=== PATIENT | female | born 1980 | race Caucasian/White ===

== ENCOUNTER 2016-06-14 11:55 | Emergency (ER) | payer BC ==
[~2016-06-14] VITALS: Ht 160 cm; Wt 140.6 kg
[~2016-06-14 11:55] MED LIST: BUPR150T15 PO; BUPR150T8 PO; CIPR500T94 PO; CITA20TA9 PO; LEVO200T PO; OMEP40CA2 PO; TRAZ150T55 PO; mirena
--- NOTE | 2016-06-14 13:10 | ED.ADGEN ---
Past Medical History Past Medical History: Depression, Hypothyroid, Migraines, UTI, Other Additional Past Medical Histor: left kidney disease; abscess, acid reflux Past Surgical History: Other Additional Past Surgical Histo: l)ureter repair,interstim for pelvic floor tension,I&D([id number],lap band Alcohol Use: Rarely Drug Use: None Adult General Chief Complaint Chief Complaint: ABDOMINAL PAIN HPI HPI Patient is a 35 year old [woman, history of morbid obesity, depression, hypothyroidism, recurrent UTIs, who presents to the emergency department with complaint of abdominal pain 6 days. Patient states the pain is located in her lower pelvis, midline, does radiate to her back. Denies any nausea or vomiting, any fevers or chills, any weakness, numbness, tingling, swelling extremities, chest pain or shortness of breath, injuries. She states that she initially thought this was due to a urinary tract infection, was seen at an urgent care center on , and was told that her urine was clear that time. Patient states she's been taking muscle relaxers and pain medication without relief. Last use ibuprofen and cycle that the pain last night without relief. Patient states that she feels worse with motion and activity, and when lying on her side. Denies any frequency, urgency or dysuria, Review of Systems Review of Systems Constitutional: Denies fever or chills. [] Eyes: Denies change in visual acuity. [] HENT: Denies nasal congestion or sore throat. [] Respiratory: Denies cough or shortness of breath. [] Cardiovascular: Denies chest pain or edema. [] GI: Denies nausea, vomiting, bloody stools or diarrhea. Lower quadrant abdominal pain.. : Denies dysuria. [] Musculoskeletal: Denies back pain or joint pain. [] Integument: Denies rash. [] Neurologic: Denies headache, focal weakness or sensory changes. [] Endocrine: Denies polyuria or polydipsia. [] Lymphatic: Denies swollen glands. [] Psychiatric: Denies depression or anxiety. [] Current Medications Current Medications Current Medications Medications (Trade) Dose Ordered Sig/Linh Start Time Stop Time Status Last Admin Dose Admin Acetaminophen/ Hydrocodone Bitart (Lortab 5/325) 1 tab 1X ONCE 06/14/16 18:45 06/14/16 18:46 DC 06/14/16 18:43 1 TAB Acetaminophen/ Hydrocodone Bitart (Lortab 7.5/325) 1 tab 1X ONCE 06/14/16 13:15 06/14/16 13:30 DC 06/14/16 13:36 1 TAB Fentanyl Citrate (Fentanyl 2ml Vial) 25 mcg PRN Q15MIN PRN 06/14/16 16:15 06/15/16 16:14 06/14/16 16:37 25 MCG Iohexol (Omnipaque 300 Mg/ml) 75 ml 1X ONCE 06/14/16 17:15 06/14/16 17:16 DC 06/14/16 17:20 75 ML Metronidazole (Flagyl) 500 mg 1X ONCE 06/14/16 18:45 06/14/16 18:46 DC 06/14/16 18:49 500 MG Naproxen (Naprosyn) 500 mg 1X ONCE 06/14/16 13:15 06/14/16 13:20 DC 06/14/16 13:35 500 MG Ondansetron HCl (Zofran) 4 mg 1X ONCE 06/14/16 16:15 06/14/16 16:16 DC 06/14/16 16:35 4 MG Allergies Allergies Allergies Coded Allergies Type Severity Reaction Last Updated Verified azithromycin Allergy Severe rash/swelling 02/09/16 Yes sumatriptan Allergy Severe "throat swells" 02/09/16 Yes hydromorphone Allergy Intermediate itching/nausea 02/09/16 Yes latex Allergy Intermediate itching 02/09/16 Yes morphine Adverse Reaction Intermediate n/v 02/09/16 Yes Physical Exam Physical Exam Constitutional: Well developed, well nourished, no acute distress, non-toxic appearance. [] HENT: Normocephalic, atraumatic, bilateral external ears normal, oropharynx moist, no oral exudates, nose normal. [] Eyes: PERRLA, EOMI, conjunctiva normal, no discharge. [] Neck: Normal range of motion, no tenderness, supple, no stridor. [] Cardiovascular:Heart rate regular rhythm, no murmur [] Lungs & Thorax: Bilateral breath sounds clear to auscultation [] Abdomen: Bowel sounds normal, soft, mild tenderness palpation in the suprapubic pelvic region, patient morbidly obese, no rebound, rigidity, no guarding, no masses, no pulsatile masses. [] Skin: Warm, dry, no erythema, no rash. [] Back: No tenderness, no CVA tenderness. [] Extremities: No tenderness, no cyanosis, no clubbing, ROM intact, no edema. [] Neurologic: Alert and oriented X 3, normal motor function, normal sensory function, no focal deficits noted. [] Psychologic: Affect normal, judgement normal, mood normal. [] Pelvic examination: Patient with tenderness to palpation, of the cervix and left adnexa, no masses identified, patient with significant discomfort with specimens obtained, with small amount of white discharge noted in the vault. Current Patient Data Vital Signs Vital Signs Date Time Temp Pulse Resp B/P Pulse Ox O2 Delivery O2 Flow Rate FiO2 06/14/16 18:43 16 98 Room Air 06/14/16 15:42 94 153/73 06/14/16 12:30 98.3 98.3 Lab Values Laboratory Tests Test 06/14/16 11:42 06/14/16 12:50 06/14/16 16:20 POC Urine HCG, Qualitative Hcg negative (Negative) Urine Color Yellow Urine Clarity Clear Urine pH 6.5 Urine Specific [place] <=1.005 Urine Protein Negativemg/dL (NEG-TRACE) Urine Glucose (UA) Negativemg/dL (NEG) Urine Ketones (Stick) Negativemg/dL (NEG) Urine Blood Negative (NEG) Urine Nitrite Negative (NEG) Urine Bilirubin Negative (NEG) Urine Urobilinogen Dipstick 0.2mg/dL (0.2 mg/dL) Urine Leukocyte Esterase Small (NEG) Urine RBC 0/HPF (0-2) Urine WBC 1-4/HPF (0-4) Urine Squamous Epithelial Cells Occ/LPF Urine Bacteria Few/HPF (0-FEW) White Blood Count 10.8x10^3/uL (4.0-11.0) Red Blood Count 4.73x10^6/uL (3.50-5.40) Hemoglobin 13.2g/dL (12.0-15.5) Hematocrit 40.6% (36.0-47.0) Mean Corpuscular Volume 86fL (79-100) Mean Corpuscular Hemoglobin 28pg (25-35) Mean Corpuscular Hemoglobin Concent 33g/dL (31-37) Red Cell Distribution Width 13.7% (11.5-14.5) Platelet Count 259x10^3/uL (140-400) Neutrophils (%) (Auto) 67% (31-73) Lymphocytes (%) (Auto) 29% (24-48) Monocytes (%) (Auto) 4% (0-9) Eosinophils (%) (Auto) 1% (0-3) Basophils (%) (Auto) 1% (0-3) Neutrophils # (Auto) 7.2x10^3uL (1.8-7.7) Lymphocytes # (Auto) 3.1x10^3/uL (1.0-4.8) Monocytes # (Auto) 0.4x10^3/uL (0.0-1.1) Eosinophils # (Auto) 0.1x10^3/uL (0.0-0.7) Basophils # (Auto) 0.1x10^3/uL (0.0-0.2) Sodium Level 141mmol/L (136-145) Potassium Level 4.2mmol/L (3.5-5.1) Chloride Level 105mmol/L (98-107) Carbon Dioxide Level 25mmol/L (21-32) Anion Gap 11 (6-14) Blood Urea Nitrogen 18mg/dL (7-20) Creatinine 1.0mg/dL (0.6-1.0) Estimated GFR (Cockcroft-Gault) 63.5 BUN/Creatinine Ratio 18 (6-20) Glucose Level 118mg/dL (70-99) H Calcium Level 9.1mg/dL (8.5-10.1) Total Bilirubin 0.3mg/dL (0.2-1.0) Aspartate Amino Transferase (AST) 14U/L (15-37) L Alanine Aminotransferase (ALT) 21U/L (14-59) Alkaline Phosphatase 74U/L (46-116) Total Protein 7.9g/dL (6.4-8.2) Albumin 4.1g/dL (3.4-5.0) Albumin/Globulin Ratio 1.1 (1.0-1.7) Laboratory Tests 06/14/16 16:20 Laboratory Tests 06/14/16 16:20 Microbiology 06/14/16 Wet Prep - Final, Complete Microbiology 06/14/16 Wet Prep - Final, Complete EKG EKG [] Radiology/Procedures Radiology/Procedures [] [facility] [address] [place] [address] IMAGING REPORT Signed PATIENT: LAURA MARTIN ACCOUNT: [id number] : 1980 LOCATION: ER AGE: 35 SEX: F EXAM STATUS: REG ER ORD. PHYSICIAN: RAFAEL VALDEZ DO REASON: TTP L adnexa/cervix PROCEDURE: PELVIS W/TV Indication: Left adnexal tenderness to touch. Technique: Transabdominal imaging was initially performed. Transvaginal imaging also was performed to better evaluate both the uterus and the adnexa. Findings: Uterus measures 7.0 x 3.2 x 4.7 cm. Endometrial stripe measures 3 mm. There is no uterine lesion. Right ovary is visualized with color flow and waveform documented. Left ovary was not visualized transabdominally or transvaginally. There is no free pelvic fluid. Scanning in the region of the cervix demonstrated a hypoechoic focus, slightly heterogeneous. Evaluation is limited in this region. Potential polyp is noted as well. Impression: 1. Ill-defined hypoechoic focus within the cervix, nonspecific. Please correlate with exam findings. If further workup is warranted post clinical exam, consider nonemergent MRI. 2. Potential cervical polyp also noted. 3. Normal appearance of the uterus and right ovary. Nonvisualized left ovary. DICTATED and SIGNED BY: ERIK MARTINEZ MD DATE: 06/14/16 3402 CC: ROSA QURESHI MD; RAFAEL VALDEZ DO ~ Impressions: [facility] [address] [place] [address] IMAGING REPORT Signed PATIENT: LAURA MARTIN ACCOUNT: [id number] : 1980 LOCATION: ER AGE: 35 SEX: F EXAM STATUS: REG ER ORD. PHYSICIAN: RAFAEL VALDEZ DO REASON: Abd pain PROCEDURE: ABD PELV W/ IV CONTRAST ONLY PROCEDURE CT abdomen pelvis with intravenous contrast. HISTORY Abdominal pain. TECHNIQUE After administration of intravenous contrast only, 75 mL Omnipaque 300, CT of the abdomen and pelvis was formed. Exposure: One or more of the following individualized dose reduction techniques were utilized for this examination: 1. Automated exposure control. 2. Adjustment of the mA and/or kV according to patient size. 3. Use of iterative reconstruction technique. COMPARISON CT abdomen pelvis March 30, 2015. FINDINGS Evaluation of enteric structures may be limited by lack of oral contrast. Images of lower chest demonstrate 5 millimeter soft tissue pulmonary nodule in right lower lobe; given patient's age, this is probably clinically insignificant. A lap band device is seen. Liver, spleen, pancreas, gallbladder, and bilateral adrenal glands are unremarkable. Bilateral kidneys enhance symmetrically. Left kidney demonstrates moderate parenchymal thinning and scarring. No bowel obstruction or inflammation is seen. Appendix is without evidence of inflammation. Urinary bladder is unremarkable. Uterus and adnexa have unremarkable CT appearance. Sacral stimulator is seen. IMPRESSION No acute abnormality identified in the abdomen or pelvis. Electronically signed by: Flavio Romano MD (Jun 14, 2016 18:18:16) DICTATED and SIGNED BY: FLAVIO ROMANO MD DATE: 06/14/161817 CC: ROSA QURESHI MD; RAFAEL VALDEZ DO ~ Course & Med Decision Making Course & Med Decision Making Pertinent Labs and Imaging studies reviewed. (See chart for details) Patient well-appearing, pelvic examination reveals tenderness in the cervical region, although not consistent with chandelier sign. Wet prep revealed bacterial vaginosis, and a few WBCs. Ultrasound obtained due to patient's examination and complaint of pain, reveals hypoechoic density in the cervix, also possible polyp. Does not fully visualize the left ovary, right ovary is normal. On reevaluation patient is Plain pain, she is receive pain medication in the emergency department, states the pain remains in the same location although it is improved. Findings as above were discussed with Dr. Gastelum [employer] , who recommends the patient receive a CT of abdomen and pelvis to rule out a possible occult appendicitis or other concerning finding. Patient received laboratory studies revealed no evidence of acute abnormalities, and CT of abdomen and pelvis after discussion with patient regarding risk versus benefit of radiation, which did not reveal any evidence of acutely concerning findings either. Reevaluation patient is to experience some discomfort, but is tolerating by mouth in the ED without issue. 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 Patient was given copies of both her ultrasound and CT, patient voiced understanding and agreement with this plan, discharged home with pain medication, return precautions and medication instructions, in stable condition with plan as above. Dragon Disclaimer Dragon Disclaimer This electronic medical record was generated, in whole or in part, using a voice recognition dictation system. Departure Impression: Primary Impression: Pelvic pain Disposition: 01 HOME, SELF-CARE Condition: IMPROVED Scripts Metronidazole 500 Mg Tablet1 Tab PO BID #14 TAB Prov:RAFAEL VALDEZ DO 06/14/16 Hydrocodone Bit/Acetaminophen (Hydrocodone-Apap 5-325 )1 Each Tablet1 Tab PO PRN Q6HRS PRN PAIN #10 TAB Ref 0 Prov:RAFAEL VALDEZ DO 06/14/16 Naproxen 250 Mg [id number] Mg PO BID PRN PAIN #10 Prov:RAFAEL VALDEZ DO 06/14/16 RAFAEL VALDEZ DO Jun 14, 2016 13:10
[2016-06-14] MEDS ORDERED: HYDROCODONE/APAP 7.5/325MG TABLET. PO ONE (13:15)
[2016-06-14] MEDS ORDERED: NAPROXEN 500 MG TABLET PO ONE (13:15)
[2016-06-14 13:42] LABS: BILIRUBIN,URINE NEGATIVE (NEG); GLUCOSE,URINE NEGATIVE (NEG); NITRITE,URINE NEGATIVE (NEG); PH,URINE 6.5; PROTEIN,URINE NEGATIVE (NEG-TRACE); UROBILINOGEN,URINE 0.2 mg/dL (0.2 mg/dL)
[2016-06-14 13:56] LABS: BACTERIA,URINE FEW /HPF (0-FEW); RBC,URINE 0 /HPF (0-2); SQUAMOUS EPITHELIAL CELL,UR OCC /LPF
--- NOTE | 2016-06-14 14:41 | RAD ---
Indication: Left adnexal tenderness to touch. Technique: Transabdominal imaging was initially performed. Transvaginal imaging also was performed to better evaluate both the uterus and the adnexa. Findings: Uterus measures 7.0 x 3.2 x 4.7 cm. Endometrial stripe measures 3 mm. There is no uterine lesion. Right ovary is visualized with color flow and waveform documented. Left ovary was not visualized transabdominally or transvaginally. There is no free pelvic fluid. Scanning in the region of the cervix demonstrated a hypoechoic focus, slightly heterogeneous. Evaluation is limited in this region. Potential polyp is noted as well. Impression: 1. Ill-defined hypoechoic focus within the cervix, nonspecific. Please correlate with exam findings. If further workup is warranted post clinical exam, consider nonemergent MRI. 2. Potential cervical polyp also noted. 3. Normal appearance of the uterus and right ovary. Nonvisualized left ovary.
[2016-06-14] MEDS ORDERED: ONDANSETRON PF 4 MG/2 ML VIAL. IV ONE (16:15)
[2016-06-14] MEDS ORDERED: FENTANYL PF 100 MCG/2 ML VIAL. IV PRN (16:15)
[2016-06-14 16:31] LABS: BASO # 0.1 x10^3/uL (0.0-0.2); BASO % 1 % (0-3); EOS % 1 % (0-3); HEMATOCRIT 40.6 % (36.0-47.0); HEMOGLOBIN 13.2 g/dL (12.0-15.5); LYMPH # 3.1 x10^3/uL (1.0-4.8); LYMPH % 29 % (24-48); MEAN CORPUSCULAR HEMOGLOBIN 28 pg (25-35); MEAN CORPUSCULAR HGB CONC 33 g/dL (31-37); MEAN CORPUSCULAR VOLUME 86 fL (79-100); MONO % 4 % (0-9); NEUT % 67 % (31-73); PLATELET COUNT 259 x10^3/uL (140-400); RED BLOOD COUNT 4.73 x10^6/uL (3.50-5.40); RED CELL DISTRIBUTION WIDTH 13.7 % (11.5-14.5); WHITE BLOOD COUNT 10.8 x10^3/uL (4.0-11.0)
[2016-06-14 16:48] LABS: CALCIUM 9.1 mg/dL (8.5-10.1); GFR 63.5; POTASSIUM 4.2 mmol/L (3.5-5.1)
[2016-06-14 16:54] LABS: ALBUMIN 4.1 g/dL (3.4-5.0); ALBUMIN/GLOBULIN RATIO 1.1 (1.0-1.7); TOTAL BILIRUBIN 0.3 mg/dL (0.2-1.0); TOTAL PROTEIN 7.9 g/dL (6.4-8.2)
[2016-06-14] MEDS ORDERED: IOHEXOL 300 MG/ML 75 ML VIAL IV ONE (17:15)
--- NOTE | 2016-06-14 18:19 | RAD ---
PROCEDURE CT abdomen pelvis with intravenous contrast. HISTORY Abdominal pain. TECHNIQUE After administration of intravenous contrast only, 75 mL Omnipaque 300, CT of the abdomen and pelvis was formed. Exposure: One or more of the following individualized dose reduction techniques were utilized for this examination: 1. Automated exposure control. 2. Adjustment of the mA and/or kV according to patient size. 3. Use of iterative reconstruction technique. COMPARISON CT abdomen pelvis March 30, 2015. FINDINGS Evaluation of enteric structures may be limited by lack of oral contrast. Images of lower chest demonstrate 5 millimeter soft tissue pulmonary nodule in right lower lobe; given patient's age, this is probably clinically insignificant. A lap band device is seen. Liver, spleen, pancreas, gallbladder, and bilateral adrenal glands are unremarkable. Bilateral kidneys enhance symmetrically. Left kidney demonstrates moderate parenchymal thinning and scarring. No bowel obstruction or inflammation is seen. Appendix is without evidence of inflammation. Urinary bladder is unremarkable. Uterus and adnexa have unremarkable CT appearance. Sacral stimulator is seen. IMPRESSION No acute abnormality identified in the abdomen or pelvis. Electronically signed by: Flavio Gee MD (Jun 14, 2016 18:18:16)
[2016-06-14] MEDS ORDERED: METRONIDAZOLE 500 MG TABLET. PO ONE (18:45)
[2016-06-14] MEDS ORDERED: HYDROCODONE/APAP 5/325MG TABLET. PO ONE (18:45)
[2016-06-14] MEDS ORDERED: HYDR-2666 PO (18:46)
[2016-06-14] MEDS ORDERED: NAPR250T2 PO (18:46)
[2016-06-14] MEDS ORDERED: METR500T4 PO (18:46)
[2016-06-14 18:48] VITALS: BP 116/78
== END 2016-06-14 18:50 | disposition home or self-care (01) ==
LOC: ER 11:55
DX: R10.2 Pelvic and perineal pain (principal); E66.01 Morbid (severe) obesity due to excess calories; E03.9 Hypothyroidism, unspecified; K21.9 Gastro-esophageal reflux disease without esophagitis; F32.9 Major depressive disorder, single episode, unspecified; G43.909 Migraine, unspecified, not intractable, without status migrainosus; Z68.43 Body mass index [BMI] 50.0-59.9, adult; Z88.5 Allergy status to narcotic agent; Z88.8 Allergy status to other drugs, medicaments and biological substances; Z88.1 Allergy status to other antibiotic agents; Z91.040 Latex allergy status; Z87.440 Personal history of urinary (tract) infections
CPT/HCPCS: 36415; 74177; 76830; 76856; 80053; 81001; 81025; 85027; 87491; 87591; 96374; 96375; 99285; J2405; J3010; Q0111; Q9967

== ENCOUNTER 2016-09-28 00:53 | Emergency (ER) | payer BC ==
[~2016-09-28] VITALS: Ht 160 cm; Wt 140.6 kg
[~2016-09-28 00:53] MED LIST changes: +HYDR-2758 PO; +METR500T8 PO; +NAPR250T2 PO; +TRAZ150T49 PO; -TRAZ150T55 PO
[2016-09-28 01:13] VITALS: BP 116/78
[2016-09-28] MEDS: fentaNYL PF VIAL 100 MCG/2 ML VIAL IV PRN ×3 (02:16→04:05)
[2016-09-28 02:20] LABS: BASO % 0 % (0-3); EOS % 2 % (0-3); HEMATOCRIT 39.1 % (36.0-47.0); LYMPH # 3.8 x10^3/uL (1.0-4.8); LYMPH % 40 % (24-48); MEAN CORPUSCULAR HEMOGLOBIN 29 pg (25-35); MEAN CORPUSCULAR HGB CONC 33 g/dL (31-37); MEAN CORPUSCULAR VOLUME 87 fL (79-100); MONO % 6 % (0-9); NEUT % 52 % (31-73); PLATELET COUNT 236 x10^3/uL (140-400); RED BLOOD COUNT 4.47 x10^6/uL (3.50-5.40); RED CELL DISTRIBUTION WIDTH 13.6 % (11.5-14.5); WHITE BLOOD COUNT 9.4 x10^3/uL (4.0-11.0)
[2016-09-28 02:26] LABS: BILIRUBIN,URINE NEGATIVE (NEG); GLUCOSE,URINE NEGATIVE (NEG); NITRITE,URINE POSITIVE (NEG); PROTEIN,URINE NEGATIVE (NEG-TRACE); UROBILINOGEN,URINE 0.2 mg/dL (0.2 mg/dL)
[2016-09-28 02:34] LABS: CALCIUM 9.5 mg/dL (8.5-10.1); GFR 63.5; POTASSIUM 3.8 mmol/L (3.5-5.1)
[2016-09-28 02:36] LABS: BACTERIA,URINE FEW /HPF (0-FEW); RBC,URINE OCC /HPF (0-2); SQUAMOUS EPITHELIAL CELL,UR FEW /LPF; WBC,URINE OCC /HPF (0-4)
[2016-09-28 02:39] LABS: ALBUMIN 3.9 g/dL (3.4-5.0); TOTAL BILIRUBIN 0.2 mg/dL (0.2-1.0); TOTAL PROTEIN 7.7 g/dL (6.4-8.2)
[2016-09-28] MEDS ORDERED: cefTRIAXone IM 250 MG VIAL IM ONE (03:15)
[2016-09-28] MEDS ORDERED: DOXYCYCLINE HYCLATE 100 MG TABLET PO ONE (03:15)
[2016-09-28] MEDS ORDERED: MORP15TA PO (03:19)
[2016-09-28] MEDS ORDERED: DOXY100C2 PO (03:19)
[2016-09-28] MEDS ORDERED: ONDA4TAB10 SL (03:19)
--- NOTE | 2016-09-28 03:19 | PHYS DOC ---
Past Medical History Past Medical History: Depression, Hypothyroid, Migraines, UTI, Other Additional Past Medical Histor: left kidney disease; abscess, acid reflux Past Surgical History: Other Additional Past Surgical Histo: l)ureter repair,interstim for pelvic floor tension,I&D([id number],lap band Alcohol Use: Rarely Drug Use: None Adult General Chief Complaint Chief Complaint: ABDOMINAL PAIN HPI HPI 35-year-old female presenting to the emergency department today with lower abdominal suprapubic pain radiates to the back. It is mild to moderate, intermittent and feels like pressure. She reports dysuria without polyuria. She denies hematuria. She does have mild constipation but denies any blood in her stool. She denies recent STD exposure. She has had mild increase change in her vaginal fluid. Review of systems is negative for chest pain shortness of breath fevers chills. All other review of systems is negative unless otherwise noted in history of present illness. ED course: 35-year-old female presenting with suprapubic abdominal pain. Afebrile with a normal heart rate in the emergency department. Pertinent physical exam findings showed a soft nontender abdomen. Nontender McBurney's point. Negative Nunez sign. Vaginal exam performed in the presence of female nurse showed white discharge. No evidence of cervicitis. No cervical motion tenderness present. No masses palpated in the adnexa. Rocephin and doxycycline given empirically initially. Wet prep sent. The patient was then discharged home in stable condition to follow up with their primary care physician over the next 2-3 days. They were to return if their symptoms worsened or if they were concerned for any reason. [id number] discharge instructions and return precautions were given. Patient's questions were answered to their satisfaction. Patient is comfortable plan. Review of Systems Review of Systems SEE ABOVE. Current Medications Current Medications Current Medications Medications (Trade) Dose Ordered Sig/Linh Start Time Stop Time Status Last Admin Dose Admin Ceftriaxone Sodium (Rocephin Im) 250 mg 1X ONCE 09/28/16 03:15 09/28/16 03:16 DC 09/28/16 03:59 250 MG Doxycycline Hyclate (Vibra-Tab) 100 mg 1X ONCE 09/28/16 03:15 09/28/16 03:16 DC 09/28/16 03:59 100 MG Fentanyl Citrate (Fentanyl 2ml Vial) 25 mcg PRN Q30MIN PRN 09/28/16 02:15 09/28/16 04:05 DC 09/28/16 04:05 25 MCG Allergies Allergies Allergies Coded Allergies Type Severity Reaction Last Updated Verified azithromycin Allergy Severe rash/swelling 02/09/16 Yes sumatriptan Allergy Severe "throat swells" 02/09/16 Yes hydromorphone Allergy Intermediate itching/nausea 02/09/16 Yes latex Allergy Intermediate itching 02/09/16 Yes morphine Adverse Reaction Intermediate n/v 02/09/16 Yes Physical Exam Physical Exam Constitutional: Well developed, well nourished, no acute distress, non-toxic appearance. [] HENT: Normocephalic, atraumatic, bilateral external ears normal, oropharynx moist, no oral exudates, nose normal. [] Eyes: PERRLA, EOMI, conjunctiva normal, no discharge. [] Neck: Normal range of motion, no tenderness, supple, no stridor. [] Cardiovascular:Heart rate regular rhythm, no murmur [] Lungs & Thorax: Bilateral breath sounds clear to auscultation [] Abdomen: See above Skin: Warm, dry, no erythema, no rash. [] Back: No tenderness, no CVA tenderness. [] Extremities: No tenderness, no cyanosis, no clubbing, ROM intact, no edema. [] Neurologic: Alert and oriented X 3, normal motor function, normal sensory function, no focal deficits noted. [] Psychologic: Affect normal, judgement normal, mood normal. [] Current Patient Data Vital Signs Vital Signs Date Time Temp Pulse Resp B/P (MAP) Pulse Ox O2 Delivery O2 Flow Rate FiO2 09/28/16 04:05 18 Room Air 09/28/16 02:55 98 09/28/16 01:13 97.9 71 116/78 (91) 97.9 Lab Values Laboratory Tests Test 09/28/16 00:26 09/28/16 01:15 09/28/16 01:26 POC Urine HCG, Qualitative Hcg negative (Negative) Urine Collection Type Unknown Urine Color [place] Urine Clarity Clear Urine pH 6.0 Urine Specific [place] <=1.005 Urine Protein Negative mg/dL (NEG-TRACE) Urine Glucose (UA) Negative mg/dL (NEG) Urine Ketones (Stick) Negative mg/dL (NEG) Urine Blood Negative (NEG) Urine Nitrite Positive (NEG) Urine Bilirubin Negative (NEG) Urine Urobilinogen Dipstick 0.2 mg/dL (0.2 mg/dL) Urine Leukocyte Esterase Negative (NEG) Urine RBC Occ /HPF (0-2) Urine WBC Occ /HPF (0-4) Urine Squamous Epithelial Cells Few /LPF Urine Bacteria Few /HPF (0-FEW) White Blood Count 9.4 x10^3/uL (4.0-11.0) Red Blood Count 4.47 x10^6/uL (3.50-5.40) Hemoglobin 13.0 g/dL (12.0-15.5) Hematocrit 39.1 % (36.0-47.0) Mean Corpuscular Volume 87 fL (79-100) Mean Corpuscular Hemoglobin 29 pg (25-35) Mean Corpuscular Hemoglobin Concent 33 g/dL (31-37) Red Cell Distribution Width 13.6 % (11.5-14.5) Platelet Count 236 x10^3/uL (140-400) Neutrophils (%) (Auto) 52 % (31-73) Lymphocytes (%) (Auto) 40 % (24-48) Monocytes (%) (Auto) 6 % (0-9) Eosinophils (%) (Auto) 2 % (0-3) Basophils (%) (Auto) 0 % (0-3) Neutrophils # (Auto) 4.9 x10^3uL (1.8-7.7) Lymphocytes # (Auto) 3.8 x10^3/uL (1.0-4.8) Monocytes # (Auto) 0.5 x10^3/uL (0.0-1.1) Eosinophils # (Auto) 0.2 x10^3/uL (0.0-0.7) Basophils # (Auto) 0.0 x10^3/uL (0.0-0.2) Sodium Level 140 mmol/L (136-145) Potassium Level 3.8 mmol/L (3.5-5.1) Chloride Level 104 mmol/L (98-107) Carbon Dioxide Level 27 mmol/L (21-32) Anion Gap 9 (6-14) Blood Urea Nitrogen 16 mg/dL (7-20) Creatinine 1.0 mg/dL (0.6-1.0) Estimated GFR (Cockcroft-Gault) 63.5 BUN/Creatinine Ratio 16 (6-20) Glucose Level 82 mg/dL (70-99) Calcium Level 9.5 mg/dL (8.5-10.1) Total Bilirubin 0.2 mg/dL (0.2-1.0) Aspartate Amino Transferase (AST) 13 U/L (15-37) L Alanine Aminotransferase (ALT) 19 U/L (14-59) Alkaline Phosphatase 70 U/L (46-116) Total Protein 7.7 g/dL (6.4-8.2) Albumin 3.9 g/dL (3.4-5.0) Albumin/Globulin Ratio 1.0 (1.0-1.7) Lipase 299 U/L (73-393) Laboratory Tests 09/28/16 01:26 Laboratory Tests 09/28/16 01:26 Microbiology 09/28/16 Wet Prep - Final, Complete EKG EKG [] Radiology/Procedures Radiology/Procedures [] Course & Med Decision Making Course & Med Decision Making Pertinent Labs and Imaging studies reviewed. (See chart for details) [] Dragon Disclaimer Dragon Disclaimer This electronic medical record was generated, in whole or in part, using a voice recognition dictation system. Departure Departure Impression: Primary Impression: Suprapubic abdominal pain Additional Impression: UTI (lower urinary tract infection) Disposition: HOME, SELF-CARE Condition: STABLE Referrals: ROSA QURESHI MD (PCP) Patient Instructions: Abdominal Pain, Women Additional Instructions: Thank you for allowing us to participate in your care today. Followup with your primary care physician in 3 days if your symptoms do not improve. Call your Primary Doctor tomorrow and inform them of your visit today. If you do not have a primary care provider you can ask for a list of our primary care providers. Return to the emergency department you have any new or concerning findings. This should be evaluated by the primary care physician and any necessary consulting services for continued management within a few days after discharge. Return to emergency room if you have any new or concerning symptoms including but not limited to fever, chills, nausea, vomiting, intractable pain, any new rashes, chest pain, shortness of air, uncontrolled bleeding, difficulty breathing, and/or vision loss. You may have been prescribed medication that can change in your level of thinking and ability to operate machinery. These medications include hydrocodone and Ativan. Also, Benadryl has been known to do this as well. Be sure to check with your pharmacist and ask if the medications you've prescribed can affect your level of consciousness. I recommend not operating heavy machinery or driving while on medication such as these. Scripts Nitrofurantoin Monohyd/M-Cryst (MACROBID 100 MG CAPSULE) 100 Mg Capsule 1 CAP PO BID, #10 CAP Prov: BALWINDER GUPTA MD 09/28/16 Morphine Sulfate (MORPHINE SULFATE) 15 Mg Tablet 1 TAB PO PRN Q6-8HRS Y for SEVERE PAIN, #8 TAB Prov: BALWINDER GUPTA MD 09/28/16 Ondansetron (ZOFRAN ODT) 4 Mg Tab.rapdis 1 TAB SL PRN Q8HRS Y for NAUSEA, #6 TAB Prov: BALWINDER GUPTA MD 09/28/16 Doxycycline Hyclate (DOXYCYCLINE HYCLATE) 100 Mg Capsule 1 CAP PO BID, #14 CAP Prov: BALWINDER GUPTA MD 09/28/16 Problem Qualifiers BALWINDER GUPTA MD Sep 28, 2016 03:19
--- NOTE | 2016-09-28 04:12 | RAD ---
EXAM: PELVIS W/TV HISTORY: PELVIC PAIN, LARGE BODY HABITUS PT ON DEPO UNSURE LAST PERIOD, LIMITED EXAM COMPARISON: June 14, 2016 TECHNIQUE: Transverse and longitudinal sonography of the pelvis is performed utilizing transabdominal and transvaginal transducers. The exam is technically limited given patient body habitus. FINDINGS: The uterus nor ovaries are visualized transabdominally. Transabdominal imaging demonstrates an anteflexed uterus measuring 7.6 x 3.1 x 4.1 cm. Endometrial thickness measures 5 mm. The right ovary is visualized measuring 2.7 x 2.2 x 2.2 cm, with internal blood flow documented. A simple appearing 2.0 cm cyst is seen within the right ovary. The left ovary is not visualized. No adnexal mass is seen. No free fluid is seen within the provided images. A hypoechoic region is redemonstrated within the region of the cervix, unchanged from the previous exam. IMPRESSION: A simple appearing right ovarian cyst is present measuring 2.0 cm. Blood flow documented to the right ovary. Left ovary not visualized. Electronically signed by: Maegan Perkins MD (09/28/2016 4:09 AM)
[2016-09-28] MEDS ORDERED: NITR100C62 PO (04:20)
== END 2016-09-28 04:45 | disposition home or self-care (01) ==
LOC: ER 00:53
DX: N39.0 Urinary tract infection, site not specified (principal); K59.00 Constipation, unspecified; E03.9 Hypothyroidism, unspecified; K21.9 Gastro-esophageal reflux disease without esophagitis; G43.909 Migraine, unspecified, not intractable, without status migrainosus; Z87.448 Personal history of other diseases of urinary system; Z98.890 Other specified postprocedural states; Z88.1 Allergy status to other antibiotic agents; Z88.5 Allergy status to narcotic agent; Z91.040 Latex allergy status
CPT/HCPCS: 36415; 76830; 76856; 80053; 81001; 81025; 83690; 85027; 87086; 87491; 87591; 96372; 96374; 96376; 99285; J0696; J3010; Q0111

== ENCOUNTER 2016-10-24 01:43 | Emergency (ER) | payer BC ==
[~2016-10-24] VITALS: Ht 160 cm; Wt 142.9 kg
[~2016-10-24 01:43] MED LIST changes: +DOXY100C2 PO; +MORP15TA PO; +NITR100C62 PO; +ONDA4TAB10 SL
[2016-10-24 02:30] VITALS: BP 116/78
--- NOTE | 2016-10-24 02:56 | PHYS DOC ---
Past Medical History Past Medical History: Depression, Hypothyroid, Migraines, UTI, Other Additional Past Medical Histor: left kidney disease; abscess, acid reflux; interstitial cystitis Past Surgical History: Other Additional Past Surgical Histo: l)ureter repair,interstim for pelvic floor tension,I&D([id number],lap band Alcohol Use: Rarely Drug Use: None Adult General Chief Complaint Chief Complaint: PELVIC PAIN HPI HPI Patient is a 35 year old female who presents with pelvic pain. He has apparently chronic pelvic pain has been evaluated a urologist. She was here September 28 a pelvic ultrasound done. Laboratory data was unremarkable then. She states that it hurts in the middle of her pelvis. No radiation of pain. No fever. No nausea or vomiting. No diarrhea Review of Systems Review of Systems Constitutional: Denies fever or chills Eyes: Denies change in visual acuity, redness, or eye pain HENT: Denies nasal congestion or sore throat Respiratory: Denies cough or shortness of breath Cardiovascular: No chest pain GI: Denies abdominal pain, nausea, vomiting, bloody stools or diarrhea : chronic dysuria and hematuria Musculoskeletal: Denies back pain or joint pain Integument: Denies rash or skin lesions Neurologic: Denies headache, focal weakness or sensory changes Current Medications Current Medications Current Medications Medications (Trade) Dose Ordered Sig/Linh Start Time Stop Time Status Last Admin Dose Admin Fentanyl Citrate (Fentanyl 2ml Vial) 50 mcg PRN Q15MIN PRN 10/24/16 03:00 10/25/16 02:59 10/24/16 05:28 50 MCG Info (Do NOT chart on this entry -- for MONITORING) 1 each PRN DAILY PRN 10/24/16 04:15 10/26/16 04:14 Iohexol (Omnipaque 300 Mg/ml) 60 ml 1X ONCE 10/24/16 04:30 10/24/16 04:31 DC 10/24/16 04:46 60 ML Ondansetron HCl (Zofran) 4 mg 1X ONCE 10/24/16 03:15 10/24/16 03:16 DC 10/24/16 03:45 4 MG Sodium Chloride 1,000 ml @ 1,000 mls/hr Q1H 10/24/16 03:00 10/24/16 03:59 DC 10/24/16 03:45 1,000 MLS/HR Allergies Allergies Allergies Coded Allergies Type Severity Reaction Last Updated Verified azithromycin Allergy Severe rash/swelling 02/09/16 Yes sumatriptan Allergy Severe "throat swells" 02/09/16 Yes hydromorphone Allergy Intermediate itching/nausea 02/09/16 Yes latex Allergy Intermediate itching 02/09/16 Yes morphine Adverse Reaction Intermediate n/v 02/09/16 Yes Physical Exam Physical Exam Constitutional: Well developed, well nourished, no acute distress, non-toxic appearance holding her groin area. HENT: Normocephalic, atraumatic, bilateral external ears normal, oropharynx moist, no oral exudates, nose normal. Eyes: PERRLA, EOMI, conjunctiva normal, no discharge. Neck: Normal range of motion, no tenderness, supple, no stridor. Cardiovascular:Heart rate regular rhythm, no murmur Lungs & Thorax: Bilateral breath sounds clear to auscultation Abdomen: Bowel sounds normal, soft, no tenderness, no masses, no pulsatile masses. No evidence of acute surgical abdomen. Skin: Warm, dry, no erythema, no rash. Back: No tenderness, no CVA tenderness. Extremities: No tenderness, no cyanosis, no clubbing, ROM intact, no edema. Neurologic: Alert and oriented X 3, normal motor function, normal sensory function, no focal deficits noted. Psychologic: Affect normal, judgement normal, mood normal. Current Patient Data Vital Signs Vital Signs Date Time Temp Pulse Resp B/P (MAP) Pulse Ox O2 Delivery O2 Flow Rate FiO2 10/24/16 02:30 98.8 80 16 116/78 (91) 98 Room Air 98.8 Lab Values Laboratory Tests Test 10/24/16 02:45 10/24/16 03:56 White Blood Count 13.1 x10^3/uL (4.0-11.0) H Red Blood Count 4.64 x10^6/uL (3.50-5.40) Hemoglobin 13.4 g/dL (12.0-15.5) Hematocrit 41.3 % (36.0-47.0) Mean Corpuscular Volume 89 fL (79-100) Mean Corpuscular Hemoglobin 29 pg (25-35) Mean Corpuscular Hemoglobin Concent 32 g/dL (31-37) Red Cell Distribution Width 14.3 % (11.5-14.5) Platelet Count 268 x10^3/uL (140-400) Neutrophils (%) (Auto) 74 % (31-73) H Lymphocytes (%) (Auto) 21 % (24-48) L Monocytes (%) (Auto) 4 % (0-9) Eosinophils (%) (Auto) 1 % (0-3) Basophils (%) (Auto) 0 % (0-3) Neutrophils # (Auto) 9.7 x10^3uL (1.8-7.7) H Lymphocytes # (Auto) 2.7 x10^3/uL (1.0-4.8) Monocytes # (Auto) 0.5 x10^3/uL (0.0-1.1) Eosinophils # (Auto) 0.1 x10^3/uL (0.0-0.7) Basophils # (Auto) 0.1 x10^3/uL (0.0-0.2) Urine Collection Type Unknown Urine Color [place] Urine Clarity Cloudy Urine pH 5.0 Urine Specific [place] 1.015 Urine Protein Negative mg/dL (NEG-TRACE) Urine Glucose (UA) Negative mg/dL (NEG) Urine Ketones (Stick) Trace mg/dL (NEG) Urine Blood Negative (NEG) Urine Nitrite Positive (NEG) Urine Bilirubin Small (NEG) Urine Urobilinogen Dipstick 1.0 mg/dL (0.2 mg/dL) Urine Leukocyte Esterase Small (NEG) Urine RBC Occ /HPF (0-2) Urine WBC 1-4 /HPF (0-4) Urine Squamous Epithelial Cells Mod /LPF Urine Bacteria Few /HPF (0-FEW) Urine Hyaline Casts Few /HPF Sodium Level 140 mmol/L (136-145) Potassium Level 3.4 mmol/L (3.5-5.1) L Chloride Level 104 mmol/L (98-107) Carbon Dioxide Level 24 mmol/L (21-32) Anion Gap 12 (6-14) Blood Urea Nitrogen 19 mg/dL (7-20) Creatinine 1.1 mg/dL (0.6-1.0) H Estimated GFR (Cockcroft-Gault) 56.9 BUN/Creatinine Ratio 17 (6-20) Glucose Level 124 mg/dL (70-99) H Calcium Level 8.9 mg/dL (8.5-10.1) Total Bilirubin 0.5 mg/dL (0.2-1.0) Aspartate Amino Transferase (AST) 20 U/L (15-37) Alanine Aminotransferase (ALT) 26 U/L (14-59) Alkaline Phosphatase 80 U/L (46-116) Total Protein 7.6 g/dL (6.4-8.2) Albumin 3.9 g/dL (3.4-5.0) Albumin/Globulin Ratio 1.1 (1.0-1.7) Lipase 274 U/L (73-393) Urine Test Negative (NEG) Laboratory Tests 10/24/16 02:45 Laboratory Tests 10/24/16 02:45 Radiology/Procedures Radiology/Procedures IMAGING REPORT Signed PATIENT: LAURA MARTIN ACCOUNT: [id number] : 1980 LOCATION: ER AGE: 35 SEX: F EXAM STATUS: REG ER ORD. PHYSICIAN: ANA GRAY MD REASON: pelvic pain PROCEDURE: CT ABD PELV W/ IV CONTRST ONLY CT abdomen and pelvis with contrast: Reason for examination: Severe pelvic pain tonight. Helical images were obtained through the abdomen and pelvis with intravenous administration of 60 cc Omnipaque 300. Reconstruction was performed in sagittal and coronal planes. Exposure: One or more of the following individualized dose reduction techniques were utilized for this examination: 1. Automated exposure control 2. Adjustment of the mA and/or kV according to patient size 3. Use of iterative reconstruction technique. There is some linear density consistent with atelectasis in the right middle lobe and lingular segment of the left lung. The heart size is normal with no pericardial effusion. No abnormality seen at the liver, gallbladder, spleen, pancreas or adrenal glands. The abdominal aorta and inferior vena cava show no acute abnormalities. The right kidney shows no mass, renal calculus, hydronephrosis or evidence of obstructive uropathy. The left kidney shows some parenchymal scarring and suggestion of some moderate hydronephrosis but no evidence of obstructive uropathy. There is a large amount of fecal material within the colon. There is no evidence of bowel obstruction. There is no evidence of diverticulosis or diverticulitis. No abnormalities seen at the appendix. No abnormality seen at the bladder uterus or ovaries. No adnexal masses or free fluid are seen. TENS unit is seen in the lower sacral region. No acute bony abnormalities are seen. IMPRESSION: Linear density consistent with atelectasis in the right middle lobe and lingula. Left renal parenchymal scarring and suggestion of moderate hydronephrosis without obstructive uropathy. Large amount of fecal material in the colon. Electronically signed by: Maria D Hussein MD (10/24/2016 5:09 AM) [facility] Course & Med Decision Making Course & Med Decision Making Pertinent Labs and Imaging studies reviewed. (See chart for details) evaluated patient. IV NS and pain meds ordered 0500 am: CT results back and noted. No acute surgical findings. UA pos for nitrate. ? interstitial cystitis. Patient needs Urology evaluation. Will place on Macrobid and urine and sent for culture. will d/c home on tramadol and macrobid and pyridium. Dragon Disclaimer Dragon Disclaimer This electronic medical record was generated, in whole or in part, using a voice recognition dictation system. Departure Departure Impression: Primary Impression: UTI (lower urinary tract infection) Additional Impression: Pelvic pain Disposition: HOME, SELF-CARE Condition: GOOD Referrals: ROSA QURESHI MD (PCP) Patient Instructions: Pelvic Pain, Female, - Urinary Tract Infection Scripts Tramadol Hcl (TRAMADOL HCL) 50 Mg Tablet 50 MG PO Q4H Y for PAIN for 7 Days, #30 TAB Prov: ANA GRAY MD 10/24/16 Phenazopyridine Hcl (PYRIDIUM) 200 Mg Tablet 200 MG PO TID for 10 Days, #30 TAB Prov: ANA GRAY MD 10/24/16 Ondansetron (ZOFRAN ODT) 4 Mg Tab.rapdis 1 TAB SL Q8HRS, #15 TAB Prov: ANA GRAY MD 10/24/16 Nitrofurantoin Monohyd/M-Cryst (MACROBID 100 MG CAPSULE) 100 Mg Capsule 1 CAP PO BID, #10 CAP Prov: ANA GRAY MD 10/24/16 Problem Qualifiers ANA GRAY MD Oct 24, 2016 02:56
[2016-10-24] MEDS ORDERED: IV NORMAL SALINE 1000ML BAG 1,000 ML IV SCH (03:00)
[2016-10-24 03:14] LABS: BASO # 0.1 x10^3/uL (0.0-0.2); BASO % 0 % (0-3); EOS % 1 % (0-3); HEMATOCRIT 41.3 % (36.0-47.0); HEMOGLOBIN 13.4 g/dL (12.0-15.5); LYMPH # 2.7 x10^3/uL (1.0-4.8); LYMPH % 21 % (24-48); MEAN CORPUSCULAR HEMOGLOBIN 29 pg (25-35); MEAN CORPUSCULAR HGB CONC 32 g/dL (31-37); MEAN CORPUSCULAR VOLUME 89 fL (79-100); MONO % 4 % (0-9); NEUT % 74 % (31-73); PLATELET COUNT 268 x10^3/uL (140-400); RED BLOOD COUNT 4.64 x10^6/uL (3.50-5.40); RED CELL DISTRIBUTION WIDTH 14.3 % (11.5-14.5); WHITE BLOOD COUNT 13.1 x10^3/uL (4.0-11.0)
[2016-10-24] MEDS ORDERED: ONDANSETRON PF 4 MG/2 ML VIAL. IV ONE (03:15)
[2016-10-24 03:26] LABS: CALCIUM 8.9 mg/dL (8.5-10.1); CREATININE 1.1 mg/dL (0.6-1.0); GFR 56.9; POTASSIUM 3.4 mmol/L (3.5-5.1)
[2016-10-24 03:27] LABS: BILIRUBIN,URINE SMALL (NEG); GLUCOSE,URINE NEGATIVE (NEG); NITRITE,URINE POSITIVE (NEG); PROTEIN,URINE NEGATIVE (NEG-TRACE)
[2016-10-24 03:34] LABS: ALBUMIN 3.9 g/dL (3.4-5.0); ALBUMIN/GLOBULIN RATIO 1.1 (1.0-1.7); TOTAL BILIRUBIN 0.5 mg/dL (0.2-1.0); TOTAL PROTEIN 7.6 g/dL (6.4-8.2)
[2016-10-24] MEDS: fentaNYL PF VIAL 100 MCG/2 ML VIAL IV PRN ×2 (03:45→05:28)
[2016-10-24 04:15] LABS: NEG OBC UR NEG; POS OBC UR POS
[2016-10-24] MEDS ORDERED: CONTRAST GIVEN MC PRN (04:15)
[2016-10-24] MEDS ORDERED: IOHEXOL 300 MG/ML 75 ML VIAL IV ONE (04:30)
[2016-10-24 04:43] LABS: BACTERIA,URINE FEW /HPF (0-FEW); RBC,URINE OCC /HPF (0-2); SQUAMOUS EPITHELIAL CELL,UR MOD /LPF
--- NOTE | 2016-10-24 05:13 | RAD ---
CT abdomen and pelvis with contrast: Reason for examination: Severe pelvic pain tonight. Helical images were obtained through the abdomen and pelvis with intravenous administration of 60 cc Omnipaque 300. Reconstruction was performed in sagittal and coronal planes. Exposure: One or more of the following individualized dose reduction techniques were utilized for this examination: 1. Automated exposure control 2. Adjustment of the mA and/or kV according to patient size 3. Use of iterative reconstruction technique. There is some linear density consistent with atelectasis in the right middle lobe and lingular segment of the left lung. The heart size is normal with no pericardial effusion. No abnormality seen at the liver, gallbladder, spleen, pancreas or adrenal glands. The abdominal aorta and inferior vena cava show no acute abnormalities. The right kidney shows no mass, renal calculus, hydronephrosis or evidence of obstructive uropathy. The left kidney shows some parenchymal scarring and suggestion of some moderate hydronephrosis but no evidence of obstructive uropathy. There is a large amount of fecal material within the colon. There is no evidence of bowel obstruction. There is no evidence of diverticulosis or diverticulitis. No abnormalities seen at the appendix. No abnormality seen at the bladder uterus or ovaries. No adnexal masses or free fluid are seen. TENS unit is seen in the lower sacral region. No acute bony abnormalities are seen. IMPRESSION: Linear density consistent with atelectasis in the right middle lobe and lingula. Left renal parenchymal scarring and suggestion of moderate hydronephrosis without obstructive uropathy. Large amount of fecal material in the colon. Electronically signed by: Maria D Hussein MD (10/24/2016 5:09 AM) [facility]
[2016-10-24] MEDS ORDERED: ONDA4TAB10 SL (05:27)
[2016-10-24] MEDS ORDERED: PHEN-318 PO (05:27)
[2016-10-24] MEDS ORDERED: NITR100C62 PO (05:27)
[2016-10-24] MEDS ORDERED: TRAM50TA PO (05:31)
== END 2016-10-24 06:09 | disposition home or self-care (01) ==
LOC: ER 01:43
DX: N39.0 Urinary tract infection, site not specified (principal); E03.9 Hypothyroidism, unspecified; G43.909 Migraine, unspecified, not intractable, without status migrainosus; Z88.8 Allergy status to other drugs, medicaments and biological substances; Z88.1 Allergy status to other antibiotic agents; Z91.040 Latex allergy status; Z88.5 Allergy status to narcotic agent
CPT/HCPCS: 36415; 74177; 80053; 81001; 81025; 83690; 85027; 87086; 96361; 96374; 96375; 96376; 99285; J2405; J3010; J7030; Q9967

== ENCOUNTER 2016-10-24 13:10 | Emergency (ER) | payer BC ==
[~2016-10-24] VITALS: Ht 165.1 cm; Wt 142.9 kg
[~2016-10-24 13:10] MED LIST changes: -NAPR250T2 PO; +NAPR250T6 PO; +PHEN-318 PO; +TRAM50TA PO
[2016-10-24 15:19] LABS: GLUCOSE,URINE NEGATIVE (NEG)
--- NOTE | 2016-10-24 15:23 | PHYS DOC ---
Past Medical History Past Medical History: Depression, Hypothyroid, Migraines, UTI, Other Additional Past Medical Histor: left kidney disease; abscess, acid reflux; interstitial cystitis Past Surgical History: Other Additional Past Surgical Histo: l)ureter repair,interstim for pelvic floor tension,I&D([id number],lap band Alcohol Use: Rarely Drug Use: None Adult General Chief Complaint Chief Complaint: URINARY RETENTION HPI HPI Patient is a 35 year old [f__sex] who presents with [] Review of Systems Review of Systems Constitutional: Denies fever or chills [] Eyes: Denies change in visual acuity, redness, or eye pain [] HENT: Denies nasal congestion or sore throat [] Respiratory: Denies cough or shortness of breath [] Cardiovascular: No additional information not addressed in HPI [] GI: Denies abdominal pain, nausea, vomiting, bloody stools or diarrhea [] : Denies dysuria or hematuria [] Musculoskeletal: Denies back pain or joint pain [] Integument: Denies rash or skin lesions [] Neurologic: Denies headache, focal weakness or sensory changes [] Endocrine: Denies polyuria or polydipsia [] Allergies Allergies Allergies Coded Allergies Type Severity Reaction Last Updated Verified azithromycin Allergy Severe rash/swelling 02/09/16 Yes sumatriptan Allergy Severe "throat swells" 02/09/16 Yes hydromorphone Allergy Intermediate itching/nausea 02/09/16 Yes latex Allergy Intermediate itching 02/09/16 Yes morphine Adverse Reaction Intermediate n/v 02/09/16 Yes Physical Exam Physical Exam Constitutional: Well developed, well nourished, no acute distress, non-toxic appearance. [] HENT: Normocephalic, atraumatic, bilateral external ears normal, oropharynx moist, no oral exudates, nose normal. [] Eyes: PERRLA, EOMI, conjunctiva normal, no discharge. [] Neck: Normal range of motion, no tenderness, supple, no stridor. [] Cardiovascular:Heart rate regular rhythm, no murmur [] Lungs & Thorax: Bilateral breath sounds clear to auscultation [] Abdomen: Bowel sounds normal, soft, no tenderness, no masses, no pulsatile masses. [] Skin: Warm, dry, no erythema, no rash. [] Back: No tenderness, no CVA tenderness. [] Extremities: No tenderness, no cyanosis, no clubbing, ROM intact, no edema. [] Neurologic: Alert and oriented X 3, normal motor function, normal sensory function, no focal deficits noted. [] Psychologic: Affect normal, judgement normal, mood normal. [] Current Patient Data Vital Signs Vital Signs Date Time Temp Pulse Resp B/P (MAP) Pulse Ox O2 Delivery O2 Flow Rate FiO2 10/24/16 13:50 98.7 85 24 135/73 (93) 93 Room Air 98.7 EKG EKG [] Radiology/Procedures Radiology/Procedures [] Course & Med Decision Making Course & Med Decision Making Pertinent Labs and Imaging studies reviewed. (See chart for details) [] Dragon Disclaimer Dragon Disclaimer This electronic medical record was generated, in whole or in part, using a voice recognition dictation system. Departure Departure Impression: Primary Impression: UTI (lower urinary tract infection) Additional Impression: Urinary retention Disposition: HOME, SELF-CARE Condition: STABLE Referrals: ROSA QURESHI MD (PCP) Patient Instructions: Urinary Retention, Acute, Female, [id number] Additional Instructions: Thank you for allowing us to participate in your care today. Followup with your primary care physician in 3 days if your symptoms do not improve. Call your Primary Doctor tomorrow and inform them of your visit today. If you do not have a primary care provider you can ask for a list of our primary care providers. Return to the emergency department you have any new or concerning findings. This should be evaluated by the primary care physician and any necessary consulting services for continued management within a few days after discharge. Return to emergency room if you have any new or concerning symptoms including but not limited to fever, chills, nausea, vomiting, intractable pain, any new rashes, chest pain, shortness of air, uncontrolled bleeding, difficulty breathing, and/or vision loss. You may have been prescribed medication that can change in your level of thinking and ability to operate machinery. These medications include hydrocodone and Ativan. Also, Benadryl has been known to do this as well. Be sure to check with your pharmacist and ask if the medications you've prescribed can affect your level of consciousness. I recommend not operating heavy machinery or driving while on medication such as these. Problem Qualifiers BALWINDER GUPTA MD Oct 24, 2016 15:23
[2016-10-24 15:27] LABS: BACTERIA,URINE 0 /HPF (0-FEW); RBC,URINE 0 /HPF (0-2); SQUAMOUS EPITHELIAL CELL,UR OCC /LPF; WBC,URINE 0 /HPF (0-4)
--- NOTE | 2016-10-24 15:34 | PHYS DOC ---
Past Medical History Past Medical History: Depression, Hypothyroid, Migraines, UTI, Other Additional Past Medical Histor: left kidney disease; abscess, acid reflux; interstitial cystitis Past Surgical History: Other Additional Past Surgical Histo: l)ureter repair,interstim for pelvic floor tension,I&D([id number],lap band Alcohol Use: Rarely Drug Use: None Adult General Chief Complaint Chief Complaint: URINARY RETENTION HPI HPI 85-year-old female presenting to the emergency department today with suprapubic abdominal pain that is moderate intermittent nonradiating without alleviating factors. She was seen earlier this morning for dysuria and polyuria. CT the abdomen pelvis performed which was unremarkable. Otherwise the patient was diagnosed with urinary tract infection and discharged home with Pyridium and Macrobid. She denies fevers or chills. She was just discharged from our emergency department this morning. Review of systems is negative for nausea vomiting fevers chills diarrhea constipation chest pain or shortness of breath. All other review of systems is negative unless otherwise noted in history of present illness. ED course: 35-year-old female presenting to the emergency department with urinary retention after being diagnosed with urinary tract infection. Triage vital signs show the patient be afebrile with a normal heart rate. Patient had Santos catheter placed. Urinary retention likely secondary to urinary tract infection. Patient denies cauda equina symptoms such as numbness weakness or tingling. She denies perineal paresthesias or back pain. She has an appointment with the urologist that is already scheduled in about 1 week and has a primary care physician she can follow up within the next few days. The patient was then discharged home in stable condition to follow up with their primary care physician over the next 2-3 days. They were to return if their symptoms worsened or if they were concerned for any reason. [id number] discharge instructions and return precautions were given. Patient's questions were answered to their satisfaction. Review of Systems Review of Systems SEE ABOVE. Allergies Allergies Allergies Coded Allergies Type Severity Reaction Last Updated Verified azithromycin Allergy Severe rash/swelling 02/09/16 Yes sumatriptan Allergy Severe "throat swells" 02/09/16 Yes hydromorphone Allergy Intermediate itching/nausea 02/09/16 Yes latex Allergy Intermediate itching 02/09/16 Yes morphine Adverse Reaction Intermediate n/v 02/09/16 Yes Physical Exam Physical Exam SEE ABOVE Constitutional: Well developed, well nourished, no acute distress, non-toxic appearance. [] HENT: Normocephalic, atraumatic, bilateral external ears normal, oropharynx moist, no oral exudates, nose normal. [] Eyes: PERRLA, EOMI, conjunctiva normal, no discharge. [] Neck: Normal range of motion, no tenderness, supple, no stridor. [] Cardiovascular:Heart rate regular rhythm, no murmur [] Lungs & Thorax: Bilateral breath sounds clear to auscultation [] Abdomen: Soft nontender abdomen without rebound tenderness or guarding present. Negative McBurneys point. Negative Nunez sign. No ecchymosis present. Skin: Warm, dry, no erythema, no rash. [] Back: No tenderness, no CVA tenderness. [] Extremities: No tenderness, no cyanosis, no clubbing, ROM intact, no edema. [] Neurologic: Alert and oriented X 3, normal motor function, normal sensory function, no focal deficits noted. [] Psychologic: Affect normal, judgement normal, mood normal. [] Current Patient Data Vital Signs Vital Signs Date Time Temp Pulse Resp B/P (MAP) Pulse Ox O2 Delivery O2 Flow Rate FiO2 10/24/16 15:45 81 20 97 10/24/16 13:50 98.7 135/73 (93) Room Air 98.7 Lab Values Laboratory Tests Test 10/24/16 15:11 Urine Collection Type Unknown Urine Color Red Urine Clarity Clear Urine pH 5.0 Urine Specific [place] >=1.030 Urine Protein mg/dL (NEG-TRACE) Urine Glucose (UA) Negative mg/dL (NEG) Urine Ketones (Stick) Negative mg/dL (NEG) Urine Blood Negative (NEG) Urine Nitrite (NEG) Urine Bilirubin (NEG) Urine Urobilinogen Dipstick mg/dL (0.2 mg/dL) Urine Leukocyte Esterase (NEG) Urine RBC 0 /HPF (0-2) Urine WBC 0 /HPF (0-4) Urine Squamous Epithelial Cells Occ /LPF Urine Bacteria 0 /HPF (0-FEW) Urine Mucus Mod /LPF EKG EKG [] Radiology/Procedures Radiology/Procedures [] Course & Med Decision Making Course & Med Decision Making Pertinent Labs and Imaging studies reviewed. (See chart for details) [] Dragon Disclaimer Dragon Disclaimer This electronic medical record was generated, in whole or in part, using a voice recognition dictation system. Departure Departure Impression: Primary Impression: UTI (lower urinary tract infection) Additional Impression: Urinary retention Disposition: 01 HOME, SELF-CARE Condition: STABLE Referrals: ROSA QURESHI MD (PCP) Patient Instructions: Urinary Retention, Acute, Female Additional Instructions: Thank you for allowing us to participate in your care today. Followup with your primary care physician in 3 days if your symptoms do not improve. Call your Primary Doctor tomorrow and inform them of your visit today. If you do not have a primary care provider you can ask for a list of our primary care providers. Return to the emergency department you have any new or concerning findings. This should be evaluated by the primary care physician and any necessary consulting services for continued management within a few days after discharge. Return to emergency room if you have any new or concerning symptoms including but not limited to fever, chills, nausea, vomiting, intractable pain, any new rashes, chest pain, shortness of air, uncontrolled bleeding, difficulty breathing, and/or vision loss. You may have been prescribed medication that can change in your level of thinking and ability to operate machinery. These medications include hydrocodone and Ativan. Also, Benadryl has been known to do this as well. Be sure to check with your pharmacist and ask if the medications you've prescribed can affect your level of consciousness. I recommend not operating heavy machinery or driving while on medication such as these. Problem Qualifiers BALWINDER GUPTA MD Oct 24, 2016 15:34
[2016-10-24 15:45] VITALS: BP 140/80
== END 2016-10-24 16:00 | disposition home or self-care (01) ==
LOC: ER 13:10
DX: N39.0 Urinary tract infection, site not specified (principal); R33.9 Retention of urine, unspecified; E03.9 Hypothyroidism, unspecified; G43.909 Migraine, unspecified, not intractable, without status migrainosus; Z88.1 Allergy status to other antibiotic agents; Z91.040 Latex allergy status; Z88.5 Allergy status to narcotic agent; Z88.8 Allergy status to other drugs, medicaments and biological substances
CPT/HCPCS: 51702; 81001; 99283; 99285-25

== ENCOUNTER → 2016-11-23 | Outpatient (CLI) | payer BC ==
[2016-10-24 15:45] VITALS: BP 140/80
[~2016-11-23] MED LIST changes: +BARIUM SULFATE 60% 355 ML SUSP PO ONE; +NAPR250T2 PO; -NAPR250T6 PO
--- NOTE | 2016-11-23 13:08 | RAD ---
Small bowel follow-through Indication: Chronic pelvic pain for 4 months. History of lap band baseman and pain stimulator placement in 2004. History of diarrhea for months. Technique: Small bowel follow-through study was performed using barium enteric contrast. Total fluoroscopy time of 0.7 minutes with 16 images. Comparison: None Findings: The survey research professor images demonstrate gastric lap band and pain stimulator. Visualized lungs are clear. No abnormally dilated bowel loops suggest bowel obstruction. Moderate amount of stool in the ascending colon. 0 minute images demonstrate optimal opacification of the stomach and proximal bowel loops. 15 minute images demonstrate opacification of the mid and distal small bowel loops. The contrast was seen in the cecum at 1 hour 15 minutes. Terminal ileum is visualized and is within normal limits. No evidence of stricture or fistula. No bowel wall edema. Impression: 1. No bowel obstruction. 2. No stricture or fistula. 3. Total transit time to cecum, 1 hr 15 minutes.
== END | disposition home or self-care (01) ==
LOC: RAD 09:23
PROVIDERS: ATTEND Internal Medicine Gastroenterology
DX: R10.2 Pelvic and perineal pain (principal); R19.7 Diarrhea, unspecified; G89.29 Other chronic pain; Z98.84 Bariatric surgery status
CPT/HCPCS: 74250

== ENCOUNTER 2017-01-11 18:35 | Emergency (ER) | payer BC ==
[~2017-01-11] VITALS: Ht 157.5 cm; Wt 136.1 kg
[~2017-01-11 18:35] MED LIST changes: -BARIUM SULFATE 60% 355 ML SUSP PO ONE; -NAPR250T2 PO; +NAPR250T6 PO
--- NOTE | 2017-01-11 18:46 | PHYS DOC ---
Past Medical History Past Medical History: Depression, Hypothyroid, Migraines, UTI, Other Additional Past Medical Histor: left kidney disease; abscess, acid reflux; interstitial cystitis Past Surgical History: Other Additional Past Surgical Histo: l)ureter repair,interstim for pelvic floor tension,I&D([id number],lap band Alcohol Use: Rarely Drug Use: None Adult General Chief Complaint Chief Complaint: GROIN PAIN HPI HPI Patient is a 36 year old female who presents with bladder pain. Patient has a history of interstitial cystitis and sees Dr. Morton. She had an effusion today in the clinic and this is her third infusions started around 4: 00 and then she had a hold this material in her bladder until 6 PM. The substance infused is dimethyl sulfoxide. She states she was fine and had her normal urethral irritation until she urinated 6:00 and now she has a burning sensation in her pelvic area and feels like she constantly needs to urinate. She states this is 100 times worse and any previous procedure felt like. She denies any nausea vomiting. She denies any fevers or chills. She states she took 2 dicyclomine 20 mg tablets to see if that would help with her spasming, she also did 2 doses of Azo. Review of Systems Review of Systems Constitutional: Denies fever or chills [] Eyes: Denies change in visual acuity, redness, or eye pain [] HENT: Denies nasal congestion or sore throat [] Respiratory: Denies cough or shortness of breath [] Cardiovascular: No additional information not addressed in HPI [] GI: Denies abdominal pain, nausea, vomiting, bloody stools or diarrhea [] : Positive for dysuria. Musculoskeletal: Denies back pain or joint pain [] Integument: Denies rash or skin lesions [] Neurologic: Denies headache, focal weakness or sensory changes [] Endocrine: Denies polyuria or polydipsia [] Current Medications Current Medications Current Medications Medications (Trade) Dose Ordered Sig/Linh Start Time Stop Time Status Last Admin Dose Admin Acetaminophen/ Hydrocodone Bitart (Lortab 5/325) 2 tab 1X ONCE 01/11/17 20:30 01/11/17 20:31 DC Ceftriaxone Sodium 50 ml @ 100 mls/hr 1X ONCE 01/11/17 20:00 01/11/17 20:29 DC 01/11/17 20:15 100 MLS/HR Fentanyl Citrate (Fentanyl 2ml Vial) 100 mcg STK-MED ONCE 01/11/17 19:09 01/11/17 19:10 DC Sodium Chloride 1,000 ml @ 1,000 mls/hr 1X ONCE 01/11/17 19:15 01/11/17 20:14 DC 01/11/17 20:10 1,000 MLS/HR Allergies Allergies Allergies Coded Allergies Type Severity Reaction Last Updated Verified azithromycin Allergy Severe rash/swelling 02/09/16 Yes sumatriptan Allergy Severe "throat swells" 02/09/16 Yes hydromorphone Allergy Intermediate itching/nausea 02/09/16 Yes latex Allergy Intermediate itching 02/09/16 Yes morphine Adverse Reaction Intermediate n/v 02/09/16 Yes Physical Exam Physical Exam Constitutional: Well developed, well nourished, no acute distress, non-toxic appearance. [] HENT: Normocephalic, atraumatic, bilateral external ears normal, oropharynx moist, no oral exudates, nose normal. [] Eyes: PERRLA, EOMI, conjunctiva normal, no discharge. [] Neck: Normal range of motion, no tenderness, supple, no stridor. [] Cardiovascular:Heart rate regular rhythm, no murmur [] Lungs & Thorax: Bilateral breath sounds clear to auscultation [] Abdomen: Bowel sounds normal, soft, no tenderness, no masses, no pulsatile masses. [] Skin: Warm, dry, no erythema, no rash. [] Back: No tenderness, no CVA tenderness. [] Extremities: No tenderness, no cyanosis, no clubbing, ROM intact, no edema. [] Neurologic: Alert and oriented X 3, normal motor function, normal sensory function, no focal deficits noted. [] Psychologic: Affect normal, judgement normal, mood normal. [] Current Patient Data Vital Signs Vital Signs Date Time Temp Pulse Resp B/P (MAP) Pulse Ox O2 Delivery O2 Flow Rate FiO2 01/11/17 20:14 20 96 Room Air 01/11/17 18:42 98.7 100 154/101 (118) 98.7 Lab Values Laboratory Tests Test 01/11/17 19:05 01/11/17 19:20 White Blood Count 8.8 x10^3/uL (4.0-11.0) Red Blood Count 4.40 x10^6/uL (3.50-5.40) Hemoglobin 12.8 g/dL (12.0-15.5) Hematocrit 38.2 % (36.0-47.0) Mean Corpuscular Volume 87 fL (79-100) Mean Corpuscular Hemoglobin 29 pg (25-35) Mean Corpuscular Hemoglobin Concent 34 g/dL (31-37) Red Cell Distribution Width 13.1 % (11.5-14.5) Platelet Count 283 x10^3/uL (140-400) Neutrophils (%) (Auto) 58 % (31-73) Lymphocytes (%) (Auto) 36 % (24-48) Monocytes (%) (Auto) 5 % (0-9) Eosinophils (%) (Auto) 1 % (0-3) Basophils (%) (Auto) 1 % (0-3) Neutrophils # (Auto) 5.1 x10^3uL (1.8-7.7) Lymphocytes # (Auto) 3.2 x10^3/uL (1.0-4.8) Monocytes # (Auto) 0.4 x10^3/uL (0.0-1.1) Eosinophils # (Auto) 0.1 x10^3/uL (0.0-0.7) Basophils # (Auto) 0.1 x10^3/uL (0.0-0.2) Sodium Level 140 mmol/L (136-145) Potassium Level 3.6 mmol/L (3.5-5.1) Chloride Level 104 mmol/L (98-107) Carbon Dioxide Level 26 mmol/L (21-32) Anion Gap 10 (6-14) Blood Urea Nitrogen 13 mg/dL (7-20) Creatinine 1.0 mg/dL (0.6-1.0) Estimated GFR (Cockcroft-Gault) 63.1 BUN/Creatinine Ratio 13 (6-20) Glucose Level 118 mg/dL (70-99) H Calcium Level 9.0 mg/dL (8.5-10.1) Total Bilirubin 0.2 mg/dL (0.2-1.0) Aspartate Amino Transferase (AST) 15 U/L (15-37) Alanine Aminotransferase (ALT) 20 U/L (14-59) Alkaline Phosphatase 79 U/L (46-116) Total Protein 8.0 g/dL (6.4-8.2) Albumin 3.9 g/dL (3.4-5.0) Albumin/Globulin Ratio 1.0 (1.0-1.7) Urine Collection Type Unknown Urine Color [place] Urine Clarity Cloudy Urine pH 5.5 Urine Specific [place] 1.015 Urine Protein mg/dL (NEG-TRACE) Urine Glucose (UA) Negative mg/dL (NEG) Urine Ketones (Stick) mg/dL (NEG) Urine Blood Small (NEG) Urine Nitrite Positive (NEG) Urine Bilirubin (NEG) Urine Urobilinogen Dipstick mg/dL (0.2 mg/dL) Urine Leukocyte Esterase Large (NEG) Urine RBC 0 /HPF (0-2) Urine WBC >40 /HPF (0-4) Urine Squamous Epithelial Cells Few /LPF Urine Bacteria Many /HPF (0-FEW) Laboratory Tests 01/11/17 19:05 Laboratory Tests 01/11/17 19:05 EKG EKG [] Radiology/Procedures Radiology/Procedures [] Impressions: UTI Course & Med Decision Making Course & Med Decision Making Pertinent Labs and Imaging studies reviewed. (See chart for details) Labs show positive leuks and 40 whites and many bacteria in her urine. She received 2 L of normal saline, fentanyl for pain and then Antigo. She also seemed 1 g of Rocephin and being discharged with Antigo and Augmentin 500 mg twice a day for 10 days and she is to follow-up with her urologist tomorrow. Return precautions given. She is agreeable to the plan of being discharged in stable condition at this time. She requested Diflucan as she states she gets vaginal yeast infections after antibiotics. She did receive a prescription for 1 tablet of 150 mg Diflucan, and instructed to take it when she develops signs or symptoms a yeast infection. Dragon Disclaimer Dragon Disclaimer This electronic medical record was generated, in whole or in part, using a voice recognition dictation system. Departure Departure Impression: Primary Impression: UTI (lower urinary tract infection) Disposition: 01 HOME, SELF-CARE Condition: STABLE Referrals: ROSA QURESHI MD (PCP) Patient Instructions: Urinary Tract Infection Additional Instructions: You were seen tonight for your pain in her bladder after procedure. You received IV fentanyl, IV fluids, and antibiotics. You likely have a bladder infection and you will need take antibiotics for the next 10 days. You will need to follow-up with your urologist tomorrow. Your urologist may want to switch you to a different type of antibiotics or do different treatments for you. You can take Antigo, which is a narcotic pain medicine, as needed for pain. Please don't drive or drink alcohol when taking this as it can impair judgment and make you sleepy. Return back to ER for severe pain or other concerns. Scripts Amoxicillin/Potassium Clav (AUGMENTIN 500-125 TABLET) 1 Each Tablet 1 TAB PO BID, #20 TAB Prov: MARGIE ZAMORANO MD 01/11/17 Hydrocodone/Apap 5-325 (NORCO 5-325 TABLET) 1 Each Tablet 1-2 TAB PO PRN Q6HRS Y for PAIN, #15 TAB 0 Refills Prov: MARGIE ZAMORANO MD 01/11/17 MARGIE ZAMORANO MD Jan 11, 2017 18:46
[2017-01-11] MEDS ORDERED: fentaNYL PF VIAL 100 MCG/2 ML VIAL ONE (19:09)
[2017-01-11] MEDS ORDERED: IV NORMAL SALINE 1000ML BAG 1,000 ML IV ONE ×2 (19:15)
[2017-01-11 19:17] LABS: BASO # 0.1 x10^3/uL (0.0-0.2); BASO % 1 % (0-3); EOS % 1 % (0-3); HEMATOCRIT 38.2 % (36.0-47.0); HEMOGLOBIN 12.8 g/dL (12.0-15.5); LYMPH # 3.2 x10^3/uL (1.0-4.8); LYMPH % 36 % (24-48); MEAN CORPUSCULAR HEMOGLOBIN 29 pg (25-35); MEAN CORPUSCULAR HGB CONC 34 g/dL (31-37); MEAN CORPUSCULAR VOLUME 87 fL (79-100); MONO % 5 % (0-9); NEUT % 58 % (31-73); PLATELET COUNT 283 x10^3/uL (140-400); RED CELL DISTRIBUTION WIDTH 13.1 % (11.5-14.5); WHITE BLOOD COUNT 8.8 x10^3/uL (4.0-11.0)
[2017-01-11] MEDS: fentaNYL PF VIAL 100 MCG/2 ML VIAL IV PRN ×2 (19:24→20:14)
[2017-01-11 19:28] LABS: GLUCOSE,URINE NEGATIVE (NEG); NITRITE,URINE POSITIVE (NEG); PH,URINE 5.5
[2017-01-11 19:30] LABS: GFR 63.1; POTASSIUM 3.6 mmol/L (3.5-5.1)
[2017-01-11 19:36] LABS: ALBUMIN 3.9 g/dL (3.4-5.0); TOTAL BILIRUBIN 0.2 mg/dL (0.2-1.0)
[2017-01-11 19:41] LABS: RBC,URINE 0 /HPF (0-2); WBC,URINE >40 /HPF (0-4)
[2017-01-11 19:42] LABS: BACTERIA,URINE MANY /HPF (0-FEW); SQUAMOUS EPITHELIAL CELL,UR FEW /LPF
[2017-01-11 20:21] VITALS: BP 135/77
[2017-01-11] MEDS ORDERED: HYDR-971 PO (20:28)
[2017-01-11] MEDS ORDERED: AMOX1TAB58 PO (20:28)
[2017-01-11] MEDS ORDERED: HYDROcodone/APAP 5/325MG 1 TAB TABLET PO ONE (20:30)
== END 2017-01-11 20:45 | disposition home or self-care (01) ==
LOC: ER 18:35
DX: N39.0 Urinary tract infection, site not specified (principal); F32.9 Major depressive disorder, single episode, unspecified; E03.9 Hypothyroidism, unspecified; K21.9 Gastro-esophageal reflux disease without esophagitis; G43.909 Migraine, unspecified, not intractable, without status migrainosus; Z88.5 Allergy status to narcotic agent; Z88.8 Allergy status to other drugs, medicaments and biological substances; Z88.1 Allergy status to other antibiotic agents; Z91.040 Latex allergy status
CPT/HCPCS: 36415; 80053; 81001; 85025; 87086; 96361; 96365; 96375; 96376; 99284; J0690; J3010; J7030

== ENCOUNTER 2017-01-20 11:30 | Emergency (ER) | payer BC ==
[~2017-01-20 11:30] MED LIST changes: +AMOX1TAB58 PO; +HYDR-971 PO
== END 2017-01-20 12:09 | disposition left against medical advice (07) ==
LOC: ER 11:30
DX: R10.9 Unspecified abdominal pain (principal); Z88.5 Allergy status to narcotic agent; Z88.8 Allergy status to other drugs, medicaments and biological substances; Z88.1 Allergy status to other antibiotic agents; Z91.040 Latex allergy status; Z53.21 Procedure and treatment not carried out due to patient leaving prior to being seen by health care provider

== ENCOUNTER → 2017-06-11 | Outpatient (CLI) | payer BC | END | disposition home or self-care (01) | LOC: CT 09:13 | DX: I69.398 Other sequelae of cerebral infarction (principal); G93.89 Other specified disorders of brain | CPT/HCPCS: 70450 ==

== ENCOUNTER 2017-12-30 10:06 | Emergency (ER) | payer SELFPAY ==
[~2017-12-30] VITALS: Ht 157.5 cm; Wt 156.5 kg
[2017-12-30 10:18] VITALS: BP 122/59
--- NOTE | 2017-12-30 10:49 | PHYS DOC ---
Past Medical History Past Medical History: Anxiety, Depression, Hypothyroid, Migraines, UTI, Other Additional Past Medical Histor: left kidney disease; abscess, acid reflux; interstitial cystitis Past Surgical History: Other Additional Past Surgical Histo: l)ureter repair,interstim for pelvic floor tension,I&D([id number],lap band Alcohol Use: Rarely Drug Use: None Adult General Chief Complaint Chief Complaint: URINARY FREQUENCY HPI HPI Patient is a 37 year old female with history of depression, anxiety, who presents today complaining of dysuria and urinary frequency for the last 10 days. Patient states she has tried taking [id number] Azo with no relief. Denies any fever. Denies any nausea or vomiting. Review of Systems Review of Systems Constitutional: Denies fever or chills [] Eyes: Denies change in visual acuity, redness, or eye pain [] HENT: Denies nasal congestion or sore throat [] Respiratory: Denies cough or shortness of breath [] Cardiovascular: No additional information not addressed in HPI [] GI: Denies abdominal pain, nausea, vomiting, bloody stools or diarrhea [] : reports dysuria denies hematuria [] Musculoskeletal: Denies back pain or joint pain [] Integument: Denies rash or skin lesions [] Neurologic: Denies headache, focal weakness or sensory changes [] All other systems were reviewed and found to be within normal limits, except as documented in this note. Current Medications Current Medications Current Medications Medications (Trade) Dose Ordered Sig/Linh Start Time Stop Time Status Last Admin Dose Admin Ibuprofen (Motrin) 600 mg 1X ONCE 12/30/17 11:00 12/30/17 11:01 DC 12/30/17 11:19 600 MG Phenazopyridine HCl (Pyridium) 200 mg 1X ONCE 12/30/17 11:00 12/30/17 11:01 DC Allergies Allergies Allergies Coded Allergies Type Severity Reaction Last Updated Verified azithromycin Allergy Severe rash/swelling 02/09/16 Yes sumatriptan Allergy Severe "throat swells" 02/09/16 Yes hydromorphone Allergy Intermediate itching/nausea 02/09/16 Yes latex Allergy Intermediate itching 02/09/16 Yes morphine Adverse Reaction Intermediate n/v 02/09/16 Yes Physical Exam Physical Exam Constitutional: Well developed, well nourished, no acute distress, non-toxic appearance. [] HENT: Normocephalic, atraumatic, bilateral external ears normal, oropharynx moist, no oral exudates, nose normal. [] Eyes: PERRLA, EOMI, conjunctiva normal, no discharge. [] Neck: Normal range of motion, no tenderness, supple, no stridor. [] Cardiovascular:Heart rate regular rhythm, no murmur [] Lungs & Thorax: Bilateral breath sounds clear to auscultation [] Abdomen: Bowel sounds normal, soft, no tenderness, no masses, no pulsatile masses. [] Skin: Warm, dry, no erythema, no rash. [] Back: No tenderness, no CVA tenderness. [] Extremities: No tenderness, no cyanosis, no clubbing, ROM intact, no edema. [] Neurologic: Alert and oriented X 3, normal motor function, normal sensory function, no focal deficits noted. [] Psychologic: Affect normal, judgement normal, mood normal. [] Current Patient Data Vital Signs Vital Signs Date Time Temp Pulse Resp B/P (MAP) Pulse Ox O2 Delivery O2 Flow Rate FiO2 12/30/17 10:18 98.1 77 18 122/59 (80) 99 Room Air 98.1 Lab Values Laboratory Tests Test 12/30/17 10:25 12/30/17 10:42 Urine Collection Type Unknown Urine Color [place] Urine Clarity Clear Urine pH Urine Specific [place] 1.005 Urine Protein mg/dL (NEG-TRACE) Urine Glucose (UA) mg/dL (NEG) Urine Ketones (Stick) mg/dL (NEG) Urine Blood (NEG) Urine Nitrite (NEG) Urine Bilirubin (NEG) Urine Urobilinogen Dipstick mg/dL (0.2 mg/dL) Urine Leukocyte Esterase (NEG) Urine RBC Occ /HPF (0-2) Urine WBC Occ /HPF (0-4) Urine Squamous Epithelial Cells Mod /LPF Urine Bacteria 0 /HPF (0-FEW) POC Urine HCG, Qualitative Hcg negative (Negative) EKG EKG [] Radiology/Procedures Radiology/Procedures [] Course & Med Decision Making Course & Med Decision Making Pertinent Labs and Imaging studies reviewed. (See chart for details) This is a 37 year old female presenting with dysuria X10 days. Denies any fever. Negative urine hCG, urine analysis is unable to be interpreted because of the color from Azo. Considering her symptoms patient was discharged on MicroBid. Given instructions to push fluids and follow-up with the primary care doctor as soon as she can. Provided return precautions and discharged in stable condition. Dragon Disclaimer Dragon Disclaimer This electronic medical record was generated, in whole or in part, using a voice recognition dictation system. Departure Departure Impression: Primary Impression: Dysuria Disposition: HOME, SELF-CARE Condition: STABLE Referrals: EDWARD FUNEZ (PCP) follow up in 1 week Patient Instructions: Dysuria-Brief, Urinary Tract Infection Additional Instructions: You were evaluated in the emergency room for possible UTI. Your urine was too colored to be interpreted. Please take the prescribed antibiotics as ordered. Follow-up with your own doctor in 1-2 weeks. Come back to the ED at any point symptoms worsen. Scripts Tramadol Hcl (TRAMADOL HCL) 50 Mg Tablet 50 MG PO Q6HRS PRN for PAIN, #14 TAB Prov: KEANU AYALA APRN 12/30/17 Nitrofurantoin Monohyd/M-Cryst (MACROBID 100 MG CAPSULE) 100 Mg Capsule 1 CAP PO BID, #14 CAP Prov: KEANU AYALA APRN 12/30/17 KEANU AYALA APRN Dec 30, 2017 10:49
[2017-12-30] MEDS: PHENAZOPYRIDINE 200 MG TABLET. PO ONE (11:00)
[2017-12-30] MEDS: IBUPROFEN 600 MG TABLET. PO ONE (11:19)
[2017-12-30 11:30] LABS: CLARITY,URINE CLEAR; COLOR,URINE ORANGE
[2017-12-30 12:07] LABS: RBC,URINE OCC /HPF (0-2)
[2017-12-30 12:08] LABS: BACTERIA,URINE 0 /HPF (0-FEW); SQUAMOUS EPITHELIAL CELL,UR MOD /LPF; WBC,URINE OCC /HPF (0-4)
[2017-12-30] MEDS ORDERED: TRAM50TA PO (12:19)
[2017-12-30] MEDS ORDERED: NITR100C62 PO (12:19)
== END 2017-12-30 12:20 | disposition home or self-care (01) ==
LOC: ER 10:06
DX: R30.0 Dysuria (principal); F41.9 Anxiety disorder, unspecified; F32.9 Major depressive disorder, single episode, unspecified; E03.9 Hypothyroidism, unspecified; G43.909 Migraine, unspecified, not intractable, without status migrainosus; Z87.440 Personal history of urinary (tract) infections; Z88.1 Allergy status to other antibiotic agents; Z88.5 Allergy status to narcotic agent; Z91.040 Latex allergy status
CPT/HCPCS: 81001; 81025; 99283

== ENCOUNTER 2018-05-18 23:02 | Emergency (ER) | payer OTHER ==
[~2018-05-18] VITALS: Ht 160 cm; Wt 158.8 kg
[~2018-05-18 23:02] MED LIST changes: -HYDR-2758 PO; +HYDR-2761 PO; +HYDR-3164 PO; -HYDR-971 PO; +METR-34 PO; -METR500T8 PO
[2018-05-18 23:25] VITALS: BP 145/89
--- NOTE | 2018-05-19 00:24 | PHYS DOC ---
Past Medical History Past Medical History: Anxiety, Depression, Hypothyroid, Migraines, UTI, Other Additional Past Medical Histor: left kidney disease; abscess, acid reflux; interstitial cystitis Past Surgical History: Other Additional Past Surgical Histo: l)ureter repair,interstim for pelvic floor tension,I&D([id number],lap band Alcohol Use: Occasionally Drug Use: None Adult General Chief Complaint Chief Complaint: ANKLE PROBLEM HPI HPI Patient is a 37 year old female who presents with left foot/ankle pain. Patient injured her foot on a curb here at the hospital, uncertain as to whether inversion or eversion mechanism of injury. 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 She has been able to walk. No relief with ibuprofen. This happened approximately 1 hour prior to her checking in as a patient herself. No new numbness, tingling, or other paresthesias. Patient does have a history of previous bilateral ankle sprains.[] Review of Systems Review of Systems Constitutional: Denies fever or chills [] Eyes: Denies change in visual acuity, redness, or eye pain [] HENT: Denies nasal congestion or sore throat [] Respiratory: Denies cough or shortness of breath [] Cardiovascular: No chest pain or palpitations[] GI: Denies abdominal pain, nausea, vomiting, bloody stools or diarrhea [] : Denies dysuria or hematuria [] Musculoskeletal: See history of present illness[] Integument: Denies rash or skin lesions [] Neurologic: Denies headache, focal weakness or sensory changes [] Endocrine: Denies polyuria or polydipsia [] All other systems were reviewed and found to be within normal limits, except as documented in this note. Allergies Allergies Allergies Coded Allergies Type Severity Reaction Last Updated Verified azithromycin Allergy Severe rash/swelling 02/09/16 Yes sumatriptan Allergy Severe "throat swells" 02/09/16 Yes hydromorphone Allergy Intermediate itching/nausea 02/09/16 Yes latex Allergy Intermediate itching 02/09/16 Yes morphine Adverse Reaction Intermediate n/v 02/09/16 Yes Physical Exam Physical Exam Constitutional: Well developed, well nourished, no acute distress, non-toxic appearance. [] HENT: Normocephalic, atraumatic, bilateral external ears normal, oropharynx moist, no oral exudates, nose normal. [] Eyes: PERRLA, EOMI, conjunctiva normal, no discharge. [] Neck: Normal range of motion, no tenderness, supple, no stridor. [] Cardiovascular:Heart rate regular rhythm, no murmur [] Lungs & Thorax: Bilateral breath sounds clear to auscultation [] Abdomen: Bowel sounds normal, soft, no tenderness, no masses, no pulsatile masses. [] Skin: Warm, dry, no erythema, no rash. [] Back: No tenderness, no CVA tenderness. [] Extremities: Tenderness to the medial portion of the left foot and ankle. There is no medial malleolus tenderness, no base of the fifth metatarsal tenderness, patient is distal neurovascularly intact.. [] Neurologic: Alert and oriented X 3, normal motor function, normal sensory function, no focal deficits noted. [] Psychologic: Affect normal, judgement normal, mood normal. [] Current Patient Data Vital Signs Vital Signs Date Time Temp Pulse Resp B/P (MAP) Pulse Ox O2 Delivery O2 Flow Rate FiO2 05/18/18 23:25 97.0 91 20 145/89 (107) 97 Room Air 97.0 EKG EKG [] Radiology/Procedures Radiology/Procedures X-ray of the left foot and ankle shows no evidence of a fracture or dislocation[ ] Course & Med Decision Making Course & Med Decision Making Pertinent Labs and Imaging studies reviewed. (See chart for details) ED course: Patient arrived, was placed in bed, tolerated exam well. Patient had near splint applied with any complications. Patient was distal neurovascularly intact. Discussed findings and plan with patient who voiced understanding. All questions were answered. Patient was discharged in improved condition.[] Dragon Disclaimer Dragon Disclaimer This electronic medical record was generated, in whole or in part, using a voice recognition dictation system. Departure Departure Impression: Primary Impression: Ankle sprain Disposition: 01 HOME, SELF-CARE Condition: IMPROVED Referrals: EDWARD FUNEZ (PCP) Follow-up in 2 days Patient Instructions: Ankle Sprain Additional Instructions: Follow-up with your regular doctor in 2 days. Rest, ice, elevate, and wear the air splint while walking. Return to the ER if worsening pain or any other concerns. Scripts Meloxicam (MELOXICAM) 7.5 Mg Tablet 7.5 MG PO DAILY, #20 TAB Prov: BABAR ZARATE DO 05/19/18 Problem Qualifiers Primary Impression: Ankle sprain Encounter type: initial encounter Involved ligament of ankle: unspecified ligament Laterality: left Qualified Codes: S93.402A - Sprain of unspecified ligament of left ankle, initial encounter BABAR ZARATE DO May 19, 2018 00:24
[2018-05-19] MEDS ORDERED: MELO7.5T29 PO (01:15)
--- NOTE | 2018-05-19 08:49 | RAD ---
Indication:FOOT PAIN AFTER SLIPPING OFF CURB TECHNIQUE: 3 views of the left foot and 3 views of the left ankle COMPARISON:None FINDINGS: Foot: No acute fracture or dislocation. Tiny plantar calcaneal spur. No significant arthritic changes. Diffuse mild first swelling. Ankle: There is a faint calcific density adjacent to the tip of the medial malleolus which may represent an avulsion fracture or unfused ossicle. Correlate with tenderness. Ankle mortise is intact. Moderate ankle swelling. IMPRESSION: As above. Electronically signed by: Hema Carter DO (05/19/2018 8:46 AM) [id number]
== END 2018-05-19 01:22 | disposition home or self-care (01) ==
LOC: ER 23:02
DX: S93.402A Sprain of unspecified ligament of left ankle, initial encounter (principal); E03.9 Hypothyroidism, unspecified; G43.909 Migraine, unspecified, not intractable, without status migrainosus; K21.9 Gastro-esophageal reflux disease without esophagitis; Z88.1 Allergy status to other antibiotic agents; Z88.5 Allergy status to narcotic agent; Z91.040 Latex allergy status; Z88.8 Allergy status to other drugs, medicaments and biological substances; W10.1XXA Fall (on)(from) sidewalk curb, initial encounter; Y93.89 Activity, other specified; Y92.481 Parking lot as the place of occurrence of the external cause; Y99.8 Other external cause status
CPT/HCPCS: 73610; 73630; 99283; L4350

== ENCOUNTER 2018-09-02 18:59 | Emergency (ER) | payer MEDICAID, OTHER ==
[~2018-09-02] VITALS: Ht 157.5 cm; Wt 158.8 kg
[~2018-09-02 18:59] MED LIST changes: +MELO7.5T29 PO
[2018-09-02 19:05] VITALS: BP 146/89
[2018-09-02] MEDS ORDERED: HYDROcodone/APAP 10/325 1 TAB TABLET PO ONE (19:30)
[2018-09-02] MEDS ORDERED: CYCLOBENZAPRINE 10 MG TABLET. PO ONE (19:30)
--- NOTE | 2018-09-02 19:35 | PHYS DOC ---
Past Medical History Past Medical History: Anxiety, Depression, Hypothyroid, Migraines, UTI, Other Additional Past Medical Histor: left kidney disease; abscess, acid reflux; interstitial cystitis Past Surgical History: Other Additional Past Surgical Histo: l)ureter repair,interstim for pelvic floor tension,I&D([id number],lap band Alcohol Use: Occasionally Drug Use: None Adult General Chief Complaint Chief Complaint: MECHANICAL FALL HPI HPI Patient is a 37 year old male who presents with left ankle, wrist pain after falling missing bottom step outdoors prior to ED arrival. Patient reports left wrist pain range of motion and left ankle pain and swelling. Patient states he also fell after tripping in the kitchen earlier this afternoon injuring her right wrist. No headache, loss of consciousness. Patient does not take anticoagulation therapy. Ports chronic back pain with sciatica. Limited ice to affected ibuprofen prior to ED arrival. Last menstrual period none due to irregular periods [] Review of Systems Review of Systems ROS as per HPI All other systems were reviewed and found to be within normal limits, except as documented in this note. Current Medications Current Medications Current Medications Medications (Trade) Dose Ordered Sig/Linh Start Time Stop Time Status Last Admin Dose Admin Acetaminophen/ Hydrocodone Bitart (Lortab 10/325) 1 tab 1X ONCE 09/02/18 19:30 09/02/18 19:31 DC 09/02/18 19:30 1 TAB Acetaminophen/ Hydrocodone Bitart (Lortab 5/325) 1 tab 1X ONCE 09/02/18 20:45 09/02/18 20:46 DC 09/02/18 20:45 1 TAB Cyclobenzaprine HCl (Flexeril) 10 mg 1X ONCE 09/02/18 19:30 09/02/18 19:31 DC 09/02/18 19:30 10 MG Allergies Allergies Allergies Coded Allergies Type Severity Reaction Last Updated Verified sumatriptan Allergy Severe "throat swells" 02/09/16 Yes hydromorphone Allergy Intermediate itching/nausea 02/09/16 Yes latex Allergy Intermediate itching 02/09/16 Yes morphine Adverse Reaction Intermediate n/v 02/09/16 Yes Physical Exam Physical Exam Constitutional: Well developed, well nourished, no acute distress, non-toxic appearance. [] HENT: Normocephalic, atraumatic, bilateral external ears normal, oropharynx moist, no oral exudates, nose normal. [] Eyes: PERRLA, EOMI, conjunctiva normal, no discharge. [] Neck: Normal range of motion, no tenderness, supple, no stridor. [] Back: No tenderness. [] Extremities: Left ankle's swelling with abrasion over the lateral malleolus. No deformities. Right ankle, minimal swelling, no bruising. Patient wearing flip- flops. After I, no swelling, deformity, soft tissue tenderness over dorsum of left wrist and hand. Pain with range of motion. [] Neurologic: Alert and oriented X 3 [] Psychologic: Affect normal, judgement normal, mood normal. [] Current Patient Data Vital Signs Vital Signs Date Time Temp Pulse Resp B/P (MAP) Pulse Ox O2 Delivery O2 Flow Rate FiO2 09/02/18 20:45 18 99 09/02/18 19:05 98.0 96 146/89 (108) Room Air 98.0 Lab Values Laboratory Tests Test 09/02/18 19:28 POC Urine HCG, Qualitative Hcg negative (Negative) EKG EKG [] Radiology/Procedures Radiology/Procedures [X-ray left hand: Reviewed Left ankle: Reviewed] Course & Med Decision Making Course & Med Decision Making Pertinent Labs and Imaging studies reviewed. (See chart for details) [Patient placed in a wrist splint and stirrup ankle splint. Instructed to limit weightbearing and follow-up with local PCP for reevaluation if you have official radiology report] Dragon Disclaimer [place]raine Disclaimer This electronic medical record was generated, in whole or in part, using a voice recognition dictation system. Departure Departure Impression: Primary Impression: Left wrist injury Additional Impression: Left ankle injury Disposition: ADMITTED INPATIENT Condition: GOOD Referrals: EDWARD FUNEZ SCRUB TECH (PCP) Scripts Cyclobenzaprine Hcl (CYCLOBENZAPRINE HCL) 10 Mg Tablet 1 TAB PO TID, #30 TAB Prov: CARLITO DUNCAN DO 09/02/18 Tramadol Hcl (TRAMADOL HCL) 50 Mg Tablet 50 MG PO Q6H PRN for PAIN for 3 Days, #15 TAB 0 Refills Prov: CARLITO DUNCAN DO 09/02/18 Problem Qualifiers CARLITO DUNCAN DO Sep 02, 2018 19:35
[2018-09-02] MEDS ORDERED: HYDROcodone/APAP 5/325MG 1 TAB TABLET PO ONE (20:45)
--- NOTE | 2018-09-02 20:53 | RAD ---
HAND LEFT 3V, WRIST 3V LEFT 09/02/2018 7:21 PM INDICATION: Trauma, mechanical fall COMPARISON: None available. TECHNIQUE: 3 views of the left wrist and 3 views left hand are provided. FINDINGS: There is no acute fracture or dislocation. Bone mineralization is within normal limits. Joint spaces are maintained. Regional soft tissues are within normal limits. There is no soft tissue gas or osseous erosion. IMPRESSION: No acute fracture or dislocation. Electronically signed by: Stacy Macario MD (09/02/2018 8:51 PM) [facility]
[2018-09-02] MEDS ORDERED: TRAM50TA PO (22:38)
[2018-09-02] MEDS ORDERED: CYCL10TA2 PO (22:38)
--- NOTE | 2018-09-02 23:30 | RAD ---
LEFT ANKLE AP, LATERAL, OBLIQUE Clinical Indication: Trauma, mechanical fall. Comparison: Left ankle, 3 views, May 19, 2018. Findings: There is no acute fracture or dislocation. Mineralization is normal. Joint spaces are maintained. The ankle mortise is intact. There is no obvious ankle joint effusion. There is moderate soft tissue swelling and subcutaneous edema of the ankle. There is tiny plantar calcaneal bone spur. Dorsal osteophyte with lucency of the navicular is unchanged. IMPRESSION: 1. No acute fracture. 2. Moderate soft tissue swelling. Electronically signed by: Shilo Atkins MD (09/02/2018 11:27 PM) [facility] [place]
== END 2018-09-02 23:55 | disposition home or self-care (01) ==
LOC: ER 18:59
DX: S90.512A Abrasion, left ankle, initial encounter (principal); S69.92XA Unspecified injury of left wrist, hand and finger(s), initial encounter; G43.909 Migraine, unspecified, not intractable, without status migrainosus; E03.9 Hypothyroidism, unspecified; K21.9 Gastro-esophageal reflux disease without esophagitis; Z88.5 Allergy status to narcotic agent; Z91.040 Latex allergy status; Z88.8 Allergy status to other drugs, medicaments and biological substances; W01.0XXA Fall on same level from slipping, tripping and stumbling without subsequent striking against object, initial encounter; Y93.89 Activity, other specified; Y92.090 Kitchen in other non-institutional residence as the place of occurrence of the external cause; Y99.8 Other external cause status
CPT/HCPCS: 29125; 29515; 73110; 73130; 73610; 81025; 99284-25

== ENCOUNTER 2019-01-07 11:39 | Emergency (ER) | payer MEDICAID ==
[~2019-01-07] VITALS: Ht 160 cm; Wt 152.0 kg
[~2019-01-07 11:39] MED LIST changes: +CYCL10TA2 PO
[2019-01-07] MEDS ORDERED: IV NORMAL SALINE 1000ML BAG 1,000 ML IV SCH (12:10)
[2019-01-07 12:52] LABS: BASO # 0.1 x10^3/uL (0.0-0.2); BASO % 1 % (0-3); EOS % 0 % (0-3); HEMATOCRIT 40.6 % (36.0-47.0); HEMOGLOBIN 13.3 g/dL (12.0-15.5); LYMPH # 1.8 x10^3/uL (1.0-4.8); LYMPH % 16 % (24-48); MEAN CORPUSCULAR HEMOGLOBIN 26 pg (25-35); MEAN CORPUSCULAR HGB CONC 33 g/dL (31-37); MEAN CORPUSCULAR VOLUME 80 fL (79-100); MONO # 0.6 x10^3/uL (0.0-1.1); MONO % 6 % (0-9); NEUT # 8.8 x10^3/uL (1.8-7.7); NEUT % 78 % (31-73); PLATELET COUNT 319 x10^3/uL (140-400); RED BLOOD COUNT 5.06 x10^6/uL (3.50-5.40); RED CELL DISTRIBUTION WIDTH 15.7 % (11.5-14.5); WHITE BLOOD COUNT 11.3 x10^3/uL (4.0-11.0)
[2019-01-07] MEDS ORDERED: KETOROLAC 30 MG/ML VIAL. IV ONE (13:00)
[2019-01-07] MEDS ORDERED: ONDANSETRON PF 4 MG/2 ML VIAL. IV ONE (13:00)
[2019-01-07 13:02] LABS: CLARITY,URINE CLEAR; COLOR,URINE ORANGE
[2019-01-07 13:04] LABS: BACTERIA,URINE 0 /HPF (0-FEW); WBC,URINE 0 /HPF (0-4)
[2019-01-07 13:51] LABS: CALCIUM 8.9 mg/dL (8.5-10.1); CREATININE 0.9 mg/dL (0.6-1.0); GFR 70.5
[2019-01-07 13:55] LABS: ALBUMIN 3.7 g/dL (3.4-5.0); ALBUMIN/GLOBULIN RATIO 1.2 (1.0-1.7); TOTAL BILIRUBIN 0.2 mg/dL (0.2-1.0); TOTAL PROTEIN 6.9 g/dL (6.4-8.2)
[2019-01-07 14:30] VITALS: BP 128/62
[2019-01-07] MEDS ORDERED: HYDROcodone/APAP 5/325MG 1 TAB TABLET PO ONE (14:30)
[2019-01-07] MEDS ORDERED: ONDA4TAB7 PO (14:55)
[2019-01-07] MEDS ORDERED: Percogesic PO (14:55)
--- NOTE | 2019-01-07 14:55 | PHYS DOC ---
Past Medical History Past Medical History: Anxiety, Depression, Hypothyroid, Migraines, UTI, Other Additional Past Medical Histor: left kidney disease; abscess, acid reflux; interstitial cystitis Past Surgical History: Other Additional Past Surgical Histo: l)ureter repair,interstim for pelvic floor tension,I&D([id number],lap band Alcohol Use: Occasionally Drug Use: None Adult General Chief Complaint Chief Complaint: PELVIC PAIN HPI HPI Patient is a 38 year old female who presents with complaining of abdominal pain. Patient states she woke up around 6 AM and had suprapubic pain as a sharp and stabbing pain with radiation to her back and associated with nausea and 4 e pisodes of diarrhea and urinary frequency. Patient took 4 Imodium and 4 Azo without improvement of her condition and rated her pain 10 over 10. Patient states she has had chronic pelvic pain and seen by multiple physician and pain management clinic and currently taking Neurontin with improvement of her pain. Patient states her pain today is worse than her usual. Patient states she for the last 6 days she is taking amoxicillin for sinus infection. Patient takes a long time to give history and complaining of multiple chronic problems including chronic abdominal pain. Review of Systems Review of Systems Constitutional: Denies fever or chills [] Eyes: Denies change in visual acuity, redness, or eye pain [] HENT: Denies nasal congestion or sore throat [] Respiratory: Denies cough or shortness of breath [] Cardiovascular: No additional information not addressed in HPI [] GI: Reports abdominal pain, nausea, diarrhea [] : Denies dysuria or hematuria [] Musculoskeletal: Denies back pain or joint pain [] Integument: Denies rash or skin lesions [] Neurologic: Denies headache, focal weakness or sensory changes [] Endocrine: Denies polyuria or polydipsia [] All other systems were reviewed and found to be within normal limits, except as documented in this note. Current Medications Current Medications Current Medications Medications (Trade) Dose Ordered Sig/Linh Start Time Stop Time Status Last Admin Dose Admin Acetaminophen/ Hydrocodone Bitart (Lortab 5/325) 1 tab 1X ONCE 01/07/19 14:30 01/07/19 14:34 DC 01/07/19 14:38 1 TAB Ketorolac Tromethamine (Toradol 30mg Vial) 30 mg 1X ONCE 01/07/19 13:00 01/07/19 13:11 DC 01/07/19 13:18 30 MG Ondansetron HCl (Zofran) 4 mg 1X ONCE 01/07/19 13:00 01/07/19 13:11 DC 01/07/19 13:17 4 MG Sodium Chloride 1,000 ml @ 1,000 mls/hr Q1H 01/07/19 12:10 01/07/19 13:09 DC 01/07/19 12:10 1,000 MLS/HR Allergies Allergies Allergies Coded Allergies Type Severity Reaction Last Updated Verified sumatriptan Allergy Severe "throat swells" 02/09/16 Yes hydromorphone Allergy Intermediate itching/nausea 02/09/16 Yes latex Allergy Intermediate itching 02/09/16 Yes morphine Adverse Reaction Intermediate n/v 02/09/16 Yes Physical Exam Physical Exam Constitutional: Well developed, well nourished, mild distress, non-toxic appearance, morbidly obese. [] HENT: Normocephalic, atraumatic. Eyes: PERRLA, EOMI, conjunctiva normal, no discharge. [] Neck: Normal range of motion, no tenderness, supple, no stridor. [] Cardiovascular:Heart rate regular rhythm, no murmur [] Lungs & Thorax: Bilateral breath sounds clear to auscultation [] Abdomen: Bowel sounds normal, soft, no tenderness, no masses, no pulsatile masses. [] Skin: Warm, dry, no erythema, no rash. [] Back: No tenderness, no CVA tenderness. [] Extremities: No tenderness, no cyanosis, no clubbing, ROM intact, no edema. [] Neurologic: Alert and oriented X 3, no focal deficits noted. [] Psychologic: Affect anxious, judgement normal, mood normal. [] Current Patient Data Vital Signs Vital Signs Date Time Temp Pulse Resp B/P (MAP) Pulse Ox O2 Delivery O2 Flow Rate FiO2 01/07/19 14:38 18 97 Room Air 01/07/19 12:30 84 126/59 (81) 01/07/19 12:01 98.3 98.3 Lab Values Laboratory Tests Test 01/07/19 12:00 01/07/19 12:31 01/07/19 13:35 POC Urine HCG, Qualitative Hcg negative (Negative) White Blood Count 11.3 x10^3/uL (4.0-11.0) H Red Blood Count 5.06 x10^6/uL (3.50-5.40) Hemoglobin 13.3 g/dL (12.0-15.5) Hematocrit 40.6 % (36.0-47.0) Mean Corpuscular Volume 80 fL (79-100) Mean Corpuscular Hemoglobin 26 pg (25-35) Mean Corpuscular Hemoglobin Concent 33 g/dL (31-37) Red Cell Distribution Width 15.7 % (11.5-14.5) H Platelet Count 319 x10^3/uL (140-400) Neutrophils (%) (Auto) 78 % (31-73) H Lymphocytes (%) (Auto) 16 % (24-48) L Monocytes (%) (Auto) 6 % (0-9) Eosinophils (%) (Auto) 0 % (0-3) Basophils (%) (Auto) 1 % (0-3) Neutrophils # (Auto) 8.8 x10^3/uL (1.8-7.7) H Lymphocytes # (Auto) 1.8 x10^3/uL (1.0-4.8) Monocytes # (Auto) 0.6 x10^3/uL (0.0-1.1) Eosinophils # (Auto) 0.0 x10^3/uL (0.0-0.7) Basophils # (Auto) 0.1 x10^3/uL (0.0-0.2) Urine Collection Type Void Urine Color [place] Urine Clarity Clear Urine pH Urine Specific [place] Urine Protein mg/dL (NEG-TRACE) Urine Glucose (UA) mg/dL (NEG) Urine Ketones (Stick) mg/dL (NEG) Urine Blood (NEG) Urine Nitrite (NEG) Urine Bilirubin (NEG) Urine Urobilinogen Dipstick mg/dL (0.2 mg/dL) Urine Leukocyte Esterase (NEG) Urine RBC 6-10 /HPF (0-2) Urine WBC 0 /HPF (0-4) Urine Squamous Epithelial Cells None /LPF Urine Bacteria 0 /HPF (0-FEW) Sodium Level 147 mmol/L (136-145) H Potassium Level 5.0 mmol/L (3.5-5.1) Chloride Level 108 mmol/L (98-107) H Carbon Dioxide Level 30 mmol/L (21-32) Anion Gap 9 (6-14) Blood Urea Nitrogen 17 mg/dL (7-20) Creatinine 0.9 mg/dL (0.6-1.0) Estimated GFR (Cockcroft-Gault) 70.5 BUN/Creatinine Ratio 19 (6-20) Glucose Level 91 mg/dL (70-99) Calcium Level 8.9 mg/dL (8.5-10.1) Total Bilirubin 0.2 mg/dL (0.2-1.0) Aspartate Amino Transferase (AST) 15 U/L (15-37) Alanine Aminotransferase (ALT) 20 U/L (14-59) Alkaline Phosphatase 89 U/L (46-116) Total Protein 6.9 g/dL (6.4-8.2) Albumin 3.7 g/dL (3.4-5.0) Albumin/Globulin Ratio 1.2 (1.0-1.7) Lipase 182 U/L (73-393) Laboratory Tests 01/07/19 12:31 Laboratory Tests 01/07/19 13:35 EKG EKG [] Radiology/Procedures Radiology/Procedures [] Course & Med Decision Making Course & Med Decision Making Pertinent Labs reviewed. (See chart for details) Evaluation of patient in ER showed 38-year-old male patient with history of frequent emergency room visits and chronic abdominal pain presented with complaining of abdominal pain and nausea and diarrhea and multiple chronic problem. Patient had unremarkable physical exam and looked comfortable and rated her pain 9/10. Patient treated with Toradol and falling asleep but asking for more pain medication. Patient had unremarkable labs except for mild leukocytosis the same as previous visits. Patient was advised to continue her home medication and follow up with her primary care physician regarding chronic abdominal pain. I've spoken with the patient and/or caregivers. I've explained the patient's condition, diagnosis and treatment plan based on information available to me at this time. I've answered the patient's and/or caregivers questions and addressed any concerns. The patient and/or caregivers have a good understanding the patient's diagnosis, condition and treatment plan as can be expected at this point. Vital signs have been stabilized. The patient's condition is stable for discharge from the emergency department. The patient will pursue further outpatient evaluation with her primary care provider or other designated consulting physician as outlined in the discharge instructions. Patient and/or caregivers are agreeable to this plan of care and follow-up instructions have been explained in detail. The patient and/or caregivers have received these instructions in written format and expressed understanding of these discharge instructions. The patient and her caregivers are aware that if any significant change in condition or worsening of symptoms should prompt him to immediately return to this of the closest emergency department. If an emergent department is not readily available I would encourage him to call 911. Dragon Disclaimer Dragon Disclaimer This electronic medical record was generated, in whole or in part, using a voice recognition dictation system. Departure Departure Impression: Primary Impression: Pelvic pain Additional Impressions: Medication side effect Gastroenteritis Morbid obesity with BMI of 50.0-59.9, adult Anxiety Drug-seeking behavior Disposition: HOME, SELF-CARE (at 1453) Condition: IMPROVED Referrals: EDWARD FUNEZ (PCP) Patient Instructions: Pelvic Pain, Female, Viral Gastroenteritis Additional Instructions: Drink plenty of liquids Follow-up with your primary care physician in 3-5 days Return to ER if not getting better Do not eat solids. Today Scripts [Percogesic ] No Conflict Check 1 TAB PO Q6-8HRS PRN for PAIN, #12 Prov: MARQUEZ RIOS MD 01/07/19 Ondansetron Hcl (ZOFRAN) 4 Mg Tablet 1 TAB PO PRN Q6-8HRS for nausea, #12 TAB Prov: MARQUEZ RIOS MD 01/07/19 Problem Qualifiers MARQUEZ RIOS MD Jan 07, 2019 14:55
== END 2019-01-07 15:05 | disposition home or self-care (01) ==
LOC: ER 11:39
DX: K52.9 Noninfective gastroenteritis and colitis, unspecified (principal); E66.01 Morbid (severe) obesity due to excess calories; Z68.43 Body mass index [BMI] 50.0-59.9, adult; F41.9 Anxiety disorder, unspecified; Z76.5 Malingerer [conscious simulation]; F32.9 Major depressive disorder, single episode, unspecified; G89.29 Other chronic pain; E03.9 Hypothyroidism, unspecified; G43.909 Migraine, unspecified, not intractable, without status migrainosus; Z88.5 Allergy status to narcotic agent; Z88.8 Allergy status to other drugs, medicaments and biological substances; Z91.040 Latex allergy status; K21.9 Gastro-esophageal reflux disease without esophagitis
CPT/HCPCS: 36415; 80053; 81001; 81025; 83690; 85025; 96361; 96374; 96375; 99285; J1885; J2405; J7030